=== PATIENT | male | born 1985 | race Two or more races ===

== ENCOUNTER 2025-01-06 21:03 | Emergency (ER) | payer MEDICAID, SELFPAY ==
[2025-01-06 21:04] VITALS: BMI 22.7
[2025-01-06 21:21] VITALS: BP 103/63; PULSE 103; RESP 20; TEMP 36.5; O2SAT 97
--- NOTE | 2025-01-06 21:23 | EKG_ITS ---
[facility] Test Date: 2025-01-06 Pat Name: MOHSEN CHAVEZ Department: Room: - Gender: Male [employer]: : 1985 Requested By: Adriano Escalante Order Number: [id number] Reading MD: Adriano Escalante Measurements Intervals [place] Rate: 99 P: 56 MT: 144 QRS: 62 QRSD: 103 T: 42 QT: 366 QTc: 470 Interpretive Statements SINUS RHYTHM Compared to ECG 03/21/2023 11:09:58 Sinus bradycardia no longer present Left ventricular hypertrophy no longer present /store/S0/[id number].pdf
--- NOTE | 2025-01-06 21:23 | XR_ITS ---
Examination: Abdomen sonogram, Limited Date and time of exam: January 06, 2025 2131 hrs. Indications: Epigastric pain and tenderness beginning one week ago Technique: Real-time loyd scale transabdominal sonographic images of the upper abdomen obtained. Findings: Contracted gallbladder No gallstones Gallbladder wall 0.4 cm Common bile duct 0.4 cm Pancreas obscured by bowel gas Liver 15.2 cm fatty infiltration Normal hepatopedal portal venous flow Patent IVC Impression: Repeat the gallbladder portion of the study with fasting
--- NOTE | 2025-01-06 21:24 | PD.EDRME ---
Rapid Medical Screening Exam RME Arrival date/time: 01/06/25 21:03 39 yo m present to ED for c/o of abd pain for 2 days, hx of pancreatitis I have greeted and performed a focused initial assessment of this patient. A comprehensive ED assessment and evaluation of the patient, analysis of all test results, and completion of the medical decision making process will be conducted by additional ED providers. Chief Complaint: Abdominal Pain Time Seen by Provider: 01/06/25 21:15 Vital signs: Vital Signs Temperature 97.7 F 01/06/25 21:21 Pulse Rate 103 H 01/06/25 21:21 Respiratory Rate 20 01/06/25 21:21 Blood Pressure 103/63 01/06/25 21:21 Pulse Oximetry (%) 97 01/06/25 21:21 Oxygen Delivery Method Room Air 01/06/25 21:21
[2025-01-06 22:00] LABS: Basophils % (Auto) 0 % (0-2.5); Eosinophils % (Auto) 1 % (0-10); Hematocrit 20.4 % (41.0-53.0); Immature Granulocytes % (Auto) 0 % (0-0); Immature Granulocytes Auto 0.01 Thou/mm3 (0.00-0.00); Lymphocytes # (Auto) 0.4 Thou/mm3 (1.0-4.8); Lymphocytes % (Auto) 13 % (10-50); Mean Corpuscular HGB Conc 29.9 g/dl (31.0-37.0); Mean Corpuscular Hemoglobin 26.8 pg (25.0-35.0); Mean Corpuscular Volume 90 fL (80-100); Monocytes # (Auto) 0.5 Thou/mm3 (0.0-0.8); Monocytes % (Auto) 17 % (0-12); Neutrophils # (Auto) 1.9 Thou/mm3 (1.8-7.7); Neutrophils % (Auto) 68 % (37-80); Nucleated Red Blood Cell % 0 /100 WBC (0); Platelet Count 97 Thou/mm3 (140-440); RDW Standard Deviation 64.2 fL (35.1-43.9); Red Blood Count 2.28 Miln/mm3 (4.50-5.90)
[2025-01-06 22:25] LABS: Hemoglobin 6.1 g/dL (13.5-16.0); White Blood Count 2.8 Thou/mm3 (3.8-10.6)
[2025-01-06 22:41] LABS: Alanine Aminotransferase 11 U/L (10-49); Albumin, Serum 2.8 gm/dL (3.5-5.0); Albumin/Globulin Ratio 0.6 (1.2-2.2); Alcohol, Blood Medical < 3.0 mg/dL (0-10.0); Alkaline Phosphatase 195 U/L (46-116); Amylase 144 U/L (30-118); Anion Gap 8 (7-16); Aspartate Amino Transferase 41 U/L (0-34); BUN/Creatinine Ratio 13 Ratio (12-20); Bilirubin,Total 1.9 mg/dL (0.3-1.2); Blood Urea Nitrogen 9 mg/dL (9-23); Calcium 7.9 mg/dL (8.3-10.6); Calcium (Corrected) 8.9 mg/dL (8.5-10.1); Chloride 93 mMol/L (98-107); Creatinine (Component) 0.7 mg/dL (0.6-1.3); Estimated Creatinine Clearance 129.2 mL/min (>60); Glucose 179 mg/dL (74-106); Lipase 86 U/L (12-53); Magnesium 1.6 mg/dL (1.6-2.6); Osmolality,Calculated 252 (275-295); Sodium 124 mMol/L (136-145); Total Protein 7.8 gm/dL (5.7-8.2); Troponin I < 0.020 ng/mL (0.0-0.045); eGFR > 60 See Note
[2025-01-06 22:44] LABS: INR 1.5 (0.9-1.3); Partial Thromboplastin Time 36.5 Seconds (22.0-36.0); Prothrombin Time 16.1 Seconds (9.0-12.2)
[2025-01-06 22:48] LABS: Amphetamine/Methamp Scrn,U Negative (Negative); Barbiturate Screen,Urine Negative (Negative); Benzodiazepines Screen,Urine Negative (Negative); Benzoylecgonine Screen, Ur Negative (Negative); Fentanyl Screen,Urine Negative (Negative); Opiate Screen,Urine Negative (Negative); THC Screen,Urine Negative (Negative)
[2025-01-06 22:53] LABS: B-Type Natriuretic Peptide 74 pg/mL (0-100)
[2025-01-06] MEDS: SODIUM CHLORIDE 0.9% 1000 ML 1,000 ML 999 ML IV (23:25)
[2025-01-06 23:32] VITALS: BP 112/69; PULSE 83; RESP 14; O2SAT 100
--- NOTE | 2025-01-06 23:53 | PD.EDABDPN ---
ED Abdominal Pain RME/HPI General Chief Complaint: Abdominal Pain Stated complaint: ABD PAIN, N/V X 1WK Time seen by provider: 01/06/25 21:15 Arrival date/time: 01/06/25 21:03 RME / HPI RME / HPI narrative: 01/06/25 21:03 39 yo m present to ED for c/o of abd pain for 2 days, hx of pancreatitis I have greeted and performed a focused initial assessment of this patient. A comprehensive ED assessment and evaluation of the patient, analysis of all test results, and completion of the medical decision making process will be conducted by additional ED providers. Dr. Monroy's Main ED Evaluation: 39yo male presents to the ED for a chief complaint of epigastric pain x 2 days. No radiation or migration. Patient states he usually drinks a 12-pack of tall cans of beer a day for a long time . Patient reports associated N/V. He denies any hematemesis, rectal bleeding, shortness of breath, chest pain or any other associated symptoms. Patient states he was admitted to a hospital in [place] 2 weeks ago for the same symptoms, but does not remember what his diagnosis was. Related Data Home Medications ?Medication ?Instructions ?Recorded ?Confirmed ferrous sulfate 325 mg (65 mg 325 mg PO EVERYOTHERDAY 01/06/25 01/06/25 iron) tablet naltrexone 50 mg tablet 50 mg PO BID 01/06/25 01/06/25 pantoprazole 20 mg tablet,delayed 20 mg PO QDAY 01/06/25 01/06/25 release vits,calcium no.78-iron 1 tab PO Q24H 01/06/25 01/06/25 fumarate-folic acid 29 mg-1 mg tablet (Prenatabs FA) terbinafine HCl 250 mg tablet 250 mg PO QDAY 01/06/25 01/06/25 Previous Rx's ?Medication ?Instructions ?Recorded folic acid 1 mg tablet 1 mg PO BID 30 days #30 tabs 01/18/22 levetiracetam 250 mg tablet 500 mg (2 x 250 mg) PO BID 30 days 01/18/22 #120 tabs Allergies Allergy/AdvReac Type Severity Reaction Status Date / Time No Known Allergies Allergy Verified 03/21/23 08:47 Review of Systems Review of Systems Systems Reviewed: All systems reviewed, normal except as documented Past Medical History Past Medical History NEUROLOGIC: Positive Neurological Disorders and Seizures; Negative Cerebrovascular Accident, Transient Ischemic Attacks (TIA), Dementia, Alzheimer's Disease, Parkinson's Disease, Brain Tumor, Meningitis, Epilepsy, Multiple Sclerosis, Cerebral Palsy, Amyotrophic Lateral Sclerosis (ALS/Anya Gehrig's), Guillain-Hope Syndrome, Spina Bifida, Paralysis, Peripheral Neuropathy, Alvares's Palsy, Subdural Hematoma, Migraine, Head Trauma, Spinal Cord Injury or Traumatic Brain Injury CARDIAC: Negative Cardiac Disorders or Congestive Heart Failure RESPIRATORY: Negative Chronic Obstructive Pulmonary Disease (COPD) or Asthma GASTROINTESTINAL: Positive Gastrointestinal Disorders, Pancreatitis and Gastrointestinal Bleed; Negative Hepatitis, Cirrhosis, Celiac Disease, Gall Bladder Disease, Esophageal Varices, Larsen's Esophagus, Colitis, Ulcerative Colitis, Diverticulitis, Diverticulosis, Ulcer, Irritable Bowel, Crohn's Disease, Obstructive Bowel, Hiatal Hernia, Hemorrhoids, Gastroesophageal Reflux Disease or Obesity GENITOURINARY: Negative Genitourinary Disorders or Renal Disease MUSCULOSKELETAL: Positive Musculoskeletal Disorders and Fractures (broke thumb and 5th digit); Negative Muscular Dystrophy, Myasthenia Gravis, Marfan's Syndrome, Arthritis, Rheumatoid Arthritis, Osteoporosis, Degenerative Disk Disease, Gout, Scoliosis, Carpal Tunnel Syndrome, Fibromyalgia, Degenerative Joint Disease, Osteomyelitis or Poliovirus ENT: Negative Cataracts or Head Trauma ENDOCRINE: Negative Endocrine Disorders, Diabetes Mellitus Type 1 or Diabetes Mellitus Type 2 HEMATOLOGIC: Negative Blood Disorders or Sickle Cell Disease PSYCHO/SOCIAL: Positive Psychiatric Problems and Anxiety; Negative Schizophrenia, Recreational Drug Use, Bipolar Disorder, Depression, Behavior Problems, Self-Mutilation, Attention Deficit Disorder, Attention Deficit Hyperactivity Disorder, Depression, Post Traumatic Stress Disorder or Eating Disorder OTHER HISTORY: Positive Blood Transfusions and Chicken Pox; Negative Hospitalization, Autoimmune Disease, Down Syndrome, Autism, Developmental Delay, Shingles, Falls, Blood Transfusion Reaction, Anesthesia Reactions, Organ Transplant, Chemotherapy, Radiation Therapy, Hyperbaric Therapy, MRSA, VRSA, Vancomycin-Resistant Enterococci, Human Immunodeficiency Virus (HIV), Measles, Mumps, Rubella (Malaysian Measles), Pertussis, Clostridium Difficile or Cancer Family History FAMILY HISTORY: Positive Family Cardiac Disorders (HTN), Family Cancer (lung cancer (father)) and Family Surgery (kidney transplant (brother), knee sx (mother)); Negative Family Neurologic Problems, Family Psychiatric Problems, Family Respiratory Disorders, Family Gastrointestinal Problems or Family Anesthesia Reaction Surgical History SURGICAL: Negative Cardiac Surgery, Endocrine Surgery, Ear Surgery, Tympanostomy Tube, Eye Surgery, Nose Surgery, Oral Surgery, Tonsillectomy, Adenoidectomy, Cochlear Implant, Corneal Transplant, Throat Surgery, Abdominal Surgery, Tracheostomy, Gastric Bypass Surgery, Gastrostomy, Bowel Surgery, Nephrectomy, Transurethral Resection, Joint Replacement, Amputation, Open Reduction Internal Fixation, Arthroscopy, Neurologic Surgery, Brain Shunt, Vasectomy or Organ Transplant Social History SMOKING STATUS: Never smoker SUBSTANCE USE: does not use Course Quality Measures none Orders Category Date Time Status EKG (ED ONLY) *Do not use* NOW Care 01/06/25 21:24 Completed IV [Insert IV] STAT Care 01/06/25 21:24 Active EKG (ED Only) Stat Exams 01/06/25 21:23 Draft US abdomen limited Stat Exams 01/06/25 21:23 Completed Alcohol, Blood Medical Stat Lab 01/06/25 21:30 Completed Amylase Stat Lab 01/06/25 21:30 Completed BNP [B-Type Natriuretic Peptide] Stat Lab 01/06/25 21:30 Completed CBC Stat Lab 01/06/25 21:30 Completed CMP [Comprehensive Metabolic Panel] Stat Lab 01/06/25 21:30 Completed Drug Screen,Urine Stat Lab 01/06/25 22:19 Completed INR [Prothrombin Time with INR] Stat Lab 01/06/25 21:30 Completed Lipase Stat Lab 01/06/25 21:30 Completed Mag [Magnesium] Stat Lab 01/06/25 21:30 Completed PTT [Partial Thromboplastin Time] Stat Lab 01/06/25 21:30 Completed Path Review Blood Smear Stat Lab 01/06/25 21:30 Completed Red Blood Cells Stat Lab 01/07/25 00:17 Results Troponin I Stat Lab 01/06/25 21:30 Completed Type and Screen Stat Lab 01/06/25 23:05 Results Type and Screen Stat Lab 01/07/25 01:06 Completed Sodium Chloride 0.9% 1000 ml [Ns] 1,000 ml Med 01/06/25 21:25 Discontinued IV 999 mls/hr Vital Signs Vital signs: Vital Signs Temperature 97.7 F 01/06/25 21:21 Pulse Rate 103 H 01/06/25 21:21 Respiratory Rate 20 01/06/25 21:21 Blood Pressure 103/63 01/06/25 21:21 Pulse Oximetry (%) 97 01/06/25 21:21 Oxygen Delivery Method Room Air 01/06/25 21:21 Abdominal Pain MDM MDM Narrative MDM Narrative:: Scribe Attestation: 01/06/25 - Perlita Dominguez am scribing for and in the presence of Dr. Monroy. 0 500 record to arrive from [facility]. The patient has a history of alcohol abuse and pancreatitis, hospitalized May 2024 for possible pancreatic mass, CEA was 102. Patient had a workup with ERCP and EUS that had negative for malignancy. He was transfused at that time for 1 unit and left the hospital with a hemoglobin of 8.4. Today the patient is coming back with some abdominal pain and daily drinking. He states that he is not having vomiting blood or blood in his stool. He is feeling abdominal pain with drinking more this week. No fevers. Otherwise patient does not appear jaundice. Patient is on iron per his past medical history. Review of his pulse initially showed 103 but on repeat is 80. Patient is not clinically orthostatic. Suspect that his hemoglobin and low hematocrit at 6.1 and 20 is from his chronic continued alcohol use and abuse. Platelets were 97. INR is stable at 1.5 and potassium is low at 3.0. Will replace with IV potassium. Patient is a poor historian. At this time I will order CAT scan to ensure that there is not some ongoing pancreatitis. Patient is being transfused 2 units packed red blood cell. Plan to sign out to 6 AM doc pending final disposition. Patient data External records reviewed:: [facility] previous records (Per chart review, patient was seen here on 07/13/23 for alcohol dependence.) and Other (specify) (Reviewed [facility] records from 05/2024, which showed the patient had a hemoglobin of 8.4.) Clinical information provided by:: patient Social determinants that could affect healthcare access:: alcohol use Patient has the following chronic illnesses:: pancreatitis How is presenting disease/condition affected by chronic disease/condition?: uneffected by Evaluation data The following diagnostics were reviewed and interpreted by me:: lab results and radiology exam(s) Lab and/or radiology exams considered but not ordered:: none Interpretation Summary: WBC count is 2.8, HnH is low at 6.1/20.4, Platelets are low at 97, Sodium is low at 124, Potassium is low at 3.0, Creatinine is normal, Glucose is 179, Total Bilirubin is 1.9, Troponin is normal, BNP is normal, Amylase is 144, Lipase is 86, UDS is negative, Blood Alcohol is negative, according to my interpretation. EKG done at 2133, NSR, rate of 99, normal axis, normal intervals, no acute ST or T wave changes, according to my interpretation. [facility] Report Signed Patient: MOHSEN CHAVEZ. Record#: [id number] Birthdate: 1985 Age/Sex: 39 / M Location: [facility] ([place] Attending Dr: Ordering Physician: Adriano Griffin PA-C Date of Service: 01/06/25 Procedure(s): US abdomen limited Accession Number(s): [id number] cc: Ha Dupont MD; NO PRIMARY/FAMILY,PHYSICIAN; Adriano Griffin PA-C~ Examination: Abdomen sonogram, Limited Date and time of exam: January 06, 2025 2131 hrs. Indications: Epigastric pain and tenderness beginning one week ago Technique: Real-time loyd scale transabdominal sonographic images of the upper abdomen obtained. Findings: Contracted gallbladder No gallstones Gallbladder wall 0.4 cm Common bile duct 0.4 cm Pancreas obscured by bowel gas Liver 15.2 cm fatty infiltration Normal hepatopedal portal venous flow Patent IVC Impression: Repeat the gallbladder portion of the study with fasting Dictated By: Ha Dupont MD Signed By: <Electronically signed by Ha Dupont MD in OV> 01/06/25 1258 Medications / Prescriptions Medications or Prescriptions considered but not ordered:: non Medication administrations:: Medication Administration History Discontinued Medications Sodium Chloride (Ns) 1,000 mls @ 999 mls/hr IV .Q1H1M ONE Stop: 01/06/25 22:25 Last Infusion: 01/07/25 01:37 Dose: Infused Documented By: Admin: 01/06/25 23:25 Dose: 999 mls/hr Documented By: SF see above Consultations Consultation(s) initiated? (list below): No Diagnosis Differential diagnosis abdominal pain: abdominal pain, acute appendicitis, diverticulitis and pancreatitis Most likely diagnosis given after review of the tests above:: final dx pending at sign out Admission Indicated Admission indicated?: not indicated Admission Request Was there a request for admission?: No Disposition Plan Disposition Plan: other (specify) (Signed out to Dr. Souza at [address] abdomen pelvis.) Discharge Plan Prescriptions/Referrals Prescriptions/Med Rec: No Action levetiracetam 250 mg Tablet 500 mg PO BID 30 Days Qty: 120 1RF folic acid 1 mg Tablet 1 mg PO BID 30 Days Qty: 30 0RF naltrexone 50 mg tablet 50 mg PO BID Patient Comments: TAKE 1 TABLET BY MOUTH EVERY DAY FOR 12 WEEKS terbinafine HCl 250 mg tablet 250 mg PO QDAY Patient Comments: TAKE 1 TABLET BY MOUTH EVERY DAY FOR 90 DAYS pantoprazole 20 mg tablet,delayed release (DR/EC) 20 mg PO QDAY Patient Comments: TAKE 1 TABLET BY MOUTH EVERY DAY Prenatabs FA 29-1 mg tablet 1 tab PO Q24H Patient Comments: TAKE 1 TABLET BY MOUTH EVERY DAY FOR 90 DAYS ferrous sulfate 325 mg (65 mg iron) tablet 325 mg PO EVERYOTHERDAY Patient Comments: 1 TABLET ORALLY THREE TIMES A WEEK 30 DAYS Referrals: No Primary/Family,Physician [Primary Care Provider] - In 1 week Problem List Clinical Impression: Chronic anemia, Abdominal pain, History of alcohol abuse Patient/Caregiver Discharge Instructions Print Language: Bermudian
[2025-01-07] VITALS (36 sets, daily range): BP systolic 100–130; BP diastolic 54–85; PULSE 74–92; RESP 14–28; TEMP 36.4–37; O2SAT 98–100
--- NOTE | 2025-01-07 | XR_ITS ---
MRI abdomen, without contrast. MRCP Date and time of exam: January 07, 2025 1404 hours INDICATIONS: Abdominal pain nausea vomiting this week, gallbladder wall thickened, pancreatic edema, 1 mm stone in the common bile duct on CT abdomen study today Technique: Multiple axial and coronal images of the abdomen have been obtained with the Siemens 1.5T MRI scanner. Images obtained included T1 weighted transverse images, T2-weighted transverse images, T2-weighted transverse images fat-suppressed, T2 weighted haste fat suppressed transverse images, T1 weighted images, in and out of phase images, T2-weighted coronal images, breath hold, T2 weighted haze coronal images as well as T2 weighted coronal thick slab images, MRCP. Findings: Gallbladder wall appears mildly thickened Possible tiny gallstones versus sludge Posterior 19 mm liver cyst versus hemangioma Liver is irregular in contour Mild ascites Prominent splenomegaly Sludge versus small stones in the distal common bile duct confirmed on axial image 23 Peripancreatic edema No hydronephrosis Aorta normal size IMPRESSION: Cirrhosis Splenomegaly Mild ascites Gallbladder wall appears mildly thickened which may relate to the patient's ascites Suspicious for small stones versus gallbladder sludge Sludge versus small stones in the distal common bile duct, recommend ERCP follow-up Edema surrounding the pancreas, however the patient has mild ascites
[2025-01-07 03:47] LABS: Path Review Blood Smear Sent to Pathologist
--- NOTE | 2025-01-07 05:33 | XR_ITS ---
Examination: CT abdomen with intravenous contrast CT pelvis with intravenous contrast 2-D coronal reconstructions 2-D sagittal reconstructions Date and time of exam:January 07, 2025 1026 hours COMPARISON: December 28, 2021 INDICATIONS: Generalized abdominal pain with nausea vomiting today, history pancreatitis. CTDI: vol (mGy) 5.84 DLP: (mGycm) 320 Technique: Multiple axial sections of the abdomen and pelvis have been obtained. 64 slice high-resolution scanner used. 3 mm axial sections have been obtained, post intravenous injection 60 cc [id number] 2-D sagittal, coronal reconstructions obtained. Low dose protocols were performed. One or more of the following dose reduction techniques were used; automated exposure control, adjustment of the mA and/or KV according to patient size, use of iterative reconstruction technique. Findings: Mild enlargement cardiac contour No focal liver or splenic lesions Splenomegaly AP dimension 15 cm Minimal fluid subcapsular to the spleen Liver is irregular in contour Gallbladder wall appears mildly thickened Prominent edema surrounding the pancreas with dilated pancreatic duct up to 6 mm Suspicious for 1 mm common bile duct stone Mild ascites No hydronephrosis Appendix does not show significant enlargement No bowel obstruction Colonic diverticulosis Urinary bladder wall thickening up to 10 mm IMPRESSION: Cirrhosis Moderate splenomegaly Mild ascites Gallbladder wall is thickened Acute pancreatitis with dilated pancreatic duct Suspicious for 1 mm common bile duct stone, consider MRCP follow-up Cystitis pattern
--- NOTE | 2025-01-07 06:26 | EDNOTE_ITS ---
Emergency Room Addendum <Pam Hughes - Last Filed: 01/07/25 18:00> Addendum Narrative: 0600: Care assumed from Dr. Riley, the previous shift emergency physician. Past medical, surgical, social and family history reviewed. Vitals and home medications reviewed. I will assume the care of the patient at this time, pending CT abdomen pelvis and final disposition. Please refer to the emergency department record for history and examination from initial visit.? Patient was reevaluated by myself this morning at 0840 hrs. and while he was reported to be comfortable he is completing his second unit of packed red blood cells. But reexamination shows his belly to be exquisitely tender especially upper portions. He does guard. He is complaining of pain . Will give him some pain medicines. Working to hydrate him. Urinalysis was never ordered so that was added on. Because he has such significant pain I will get a lactic acid make sure there is nothing more serious going on. CT of the abdomen is pending also patient has tenderness on his lower chest margin anteriorly but he denies any trauma or injury. Review of the chart reveals patient on naltrexone uncertain what that means. Physical exam by me shows patient is alert awake complaining of pain in his head neck appear normal he is nonicteric. Moves his neck without any discomfort. Lungs are clear to auscultation abdomen is tender but soft and positive bowel sounds are present. Lower extremities are warm and dry He needs to complete his workup for his abdominal pain complete his blood transfusion and will reevaluate the patient after all that. I have reevaluated this patient at 1142 hrs. note>>>>>>> CBC ordered was drawn before the second unit of transfusion was completed so another CBC is pending. Patient CT came back positive for no mass in the liver but concerning for a stone in the common bile duct suggesting possible choledocholithiasis. MRCP is now ordered. No patient's potassium is low we will give him some IV potassium since he has been vomiting. And the lipase is going up suggesting possible pancreatitis whether this is alcohol induced or from possible choledocholithiasis unclear at this time. He still having pain and we will give him another dose of morphine. Patient will probably need to be admitted for intractable pain possible pancreatitis and possible choledocholithiasis. If he does have choledocholithiasis seen on MRCP he will need to be transferred to someplace that has ERCP services. At 14 to 30 hours MRCP is still not done. Follow-up hemoglobin is 8.0. Potassium chloride is infusing at 10 mEq an hour will reevaluate after MRCP report comes back. MRCP came back positive for sludge and stones in the common bile duct consistent with choledocholithiasis. Since we do not have ERCP services here I contacted our transfer nurse at 1515 hrs. so he can transfer the patient to receive ERCP services. Patient is a critical care patient 45 minutes so far also as a signout. RADIOLOGY Procedure(s): CT abdomen pelvis w con Accession Number(s): [id number] cc: Ha Dupont MD; NO PRIMARY/FAMILY,PHYSICIAN; Blanca Riley MD~ Examination: CT abdomen with intravenous contrast CT pelvis with intravenous contrast 2-D coronal reconstructions 2-D sagittal reconstructions Date and time of exam:January 07, 2025 1026 hours COMPARISON: December 28, 2021 INDICATIONS: Generalized abdominal pain with nausea vomiting today, history pancreatitis. CTDI: vol (mGy) 5.84 DLP: (mGycm) 320 Technique: Multiple axial sections of the abdomen and pelvis have been obtained. 64 slice high-resolution scanner used. 3 mm axial sections have been obtained, post intravenous injection 60 cc [id number] 2-D sagittal, coronal reconstructions obtained. Low dose protocols were performed. One or more of the following dose reduction techniques were used; automated exposure control, adjustment of the mA and/or KV according to patient size, use of iterative reconstruction technique. Findings: Mild enlargement cardiac contour No focal liver or splenic lesions Splenomegaly AP dimension 15 cm Minimal fluid subcapsular to the spleen Liver is irregular in contour Gallbladder wall appears mildly thickened Prominent edema surrounding the pancreas with dilated pancreatic duct up to 6 mm Suspicious for 1 mm common bile duct stone Mild ascites No hydronephrosis Appendix does not show significant enlargement No bowel obstruction Colonic diverticulosis Urinary bladder wall thickening up to 10 mm IMPRESSION: Cirrhosis Moderate splenomegaly Mild ascites Gallbladder wall is thickened Acute pancreatitis with dilated pancreatic duct Suspicious for 1 mm common bile duct stone, consider MRCP follow-up Cystitis pattern Dictated By: Ha Dupont MD From records this a CT abdomen/ pelvis from December 28, 2021. Procedure(s): CT abdomen pelvis w con Accession Number(s): [id number] cc: Michele Blevins DEGREASING WHEEL OPERATOR; Ha Dupont MD; NO PRIMARY/FAMILY,PHYSICIAN~ Examination: CT abdomen with intravenous contrast CT pelvis with intravenous contrast 2-D coronal reconstructions 2-D sagittal reconstructions Date and time of exam:December 28, 2021 at 2306 hrs. Comparison November 12, 2021 Indications: Alcohol withdrawal today, sepsis abdominal pain. CTDI: vol (mGy) 14.57 DLP: (mGycm) 678 Technique: Multiple axial sections of the abdomen and pelvis have been obtained. 64 slice high-resolution scanner used. 3 mm axial sections have been obtained, post intravenous injection 60 cc Isovue-370 2-D sagittal, coronal reconstructions obtained. Low dose protocols were performed. One or more of the following dose reduction techniques were used; automated exposure control, adjustment of the mA and/or KV according to patient size, use of iterative reconstruction technique. Findings: Significant bibasilar opacity, greatest left base Severe diffuse fatty infiltration throughout the liver Again noted hyperdense lesion posterior right lobe of the liver, 27 mm Splenomegaly 13 cm sagittal dimension, 15 cm anterior posterior dimension Gallbladder is contracted with findings consistent with gallbladder wall thickening and edema Pancreatic duct in the head region is dilated measuring up to 6 mm No obvious pancreatic mass Perinephric stranding, no renal or ureteral calculi Aorta normal size No bowel obstruction Appendicolith, the appendix is fluid filled and thickened, axial image 101, coronal image 56, measuring up to 7.6 mm in dimension Possible subtle periappendiceal inflammatory change, axial image 103 No bowel obstruction, no diverticulitis Urinary bladder is significantly distended No prostatomegaly The osseous structures are intact Impression: Bibasilar pneumonia, recommend PA lateral chest follow-up Hyperdense lesion posterior right lobe of the liver again noted, 27 mm, recommend repeat hepatobiliary sonography to assess this lesion as well as to exclude thickened gallbladder wall gallbladder wall edema The appendix is fluid-filled and thickened, axial image 101, coronal image 56, measuring up to 7.6 mm in transverse dimension, suspicious for subtle periappendiceal inflammatory change, axial image 103 The appearance should be clinically correlated, consider surgical consultation Dictated By: Ha Dupont MD Procedure(s): MR MRCP Accession Number(s): [id number] cc: Rodney Souza MD; Ha Dupont MD; NO PRIMARY/FAMILY,PHYSICIAN~ MRI abdomen, without contrast. MRCP Date and time of exam: January 07, 2025 1404 hours INDICATIONS: Abdominal pain nausea vomiting this week, gallbladder wall thickened, pancreatic edema, 1 mm stone in the common bile duct on CT abdomen study today Technique: Multiple axial and coronal images of the abdomen have been obtained with the Siemens 1.5T MRI scanner. Images obtained included T1 weighted transverse images, T2-weighted transverse images, T2-weighted transverse images fat-suppressed, T2 weighted haste fat suppressed transverse images, T1 weighted images, in and out of phase images, T2-weighted coronal images, breath hold, T2 weighted haze coronal images as well as T2 weighted coronal thick slab images, MRCP. Findings: Gallbladder wall appears mildly thickened Possible tiny gallstones versus sludge Posterior 19 mm liver cyst versus hemangioma Liver is irregular in contour Mild ascites Prominent splenomegaly Sludge versus small stones in the distal common bile duct confirmed on axial image 23 Peripancreatic edema No hydronephrosis Aorta normal size IMPRESSION: Cirrhosis Splenomegaly Mild ascites Gallbladder wall appears mildly thickened which may relate to the patient's ascites Suspicious for small stones versus gallbladder sludge Sludge versus small stones in the distal common bile duct, recommend ERCP follow-up Edema surrounding the pancreas, however the patient has mild ascites Dictated By: Ha Dupont MD <Rodney Souza MD - Last Filed: 01/07/25 18:03> Addendum Narrative: 0600: Care assumed from Dr. Riley, the previous shift emergency physician. Past medical, surgical, social and family history reviewed. Vitals and home medications reviewed. I will assume the care of the patient at this time, pending CT abdomen pelvis and final disposition. Please refer to the emergency department record for history and examination from initial visit.? Patient was reevaluated by myself this morning at 0840 hrs. and while he was reported to be comfortable he is completing his second unit of packed red blood cells. But reexamination shows his belly to be exquisitely tender especially upper portions. He does guard. He is complaining of pain . Will give him some pain medicines. Working to hydrate him. Urinalysis was never ordered so that was added on. Because he has such significant pain I will get a lactic acid make sure there is nothing more serious going on. CT of the abdomen is pending also patient has tenderness on his lower chest margin anteriorly but he denies any trauma or injury. Review of the chart reveals patient on naltrexone uncertain what that means. Physical exam by me shows patient is alert awake complaining of pain in his head neck appear normal he is nonicteric. Moves his neck without any discomfort. Lungs are clear to auscultation abdomen is tender but soft and positive bowel sounds are present. Lower extremities are warm and dry He needs to complete his workup for his abdominal pain complete his blood transfusion and will reevaluate the patient after all that. I have reevaluated this patient at 1142 hrs. note>>>>>>> CBC ordered was drawn before the second unit of transfusion was completed so another CBC is pending. Patient CT came back positive for no mass in the liver but concerning for a stone in the common bile duct suggesting possible choledocholithiasis. MRCP is now ordered. No patient's potassium is low we will give him some IV potassium since he has been vomiting. And the lipase is going up suggesting possible pancreatitis whether this is alcohol induced or from possible choledocholithiasis unclear at this time. He still having pain and we will give him another dose of morphine. Patient will probably need to be admitted for intractable pain possible pancreatitis and possible choledocholithiasis. If he does have choledocholithiasis seen on MRCP he will need to be transferred to someplace that has ERCP services. At 14 to 30 hours MRCP is still not done. Follow-up hemoglobin is 8.0. Potassium chloride is infusing at 10 mEq an hour will reevaluate after MRCP report comes back. MRCP came back positive for sludge and stones in the common bile duct consistent with choledocholithiasis. Since we do not have ERCP services here I contacted our transfer nurse at 1515 hrs. so he can transfer the patient to receive ERCP services. Patient is a critical care patient 45 minutes so far also as a signout. I did a rectal exam at 1630 hrs. and it is brown stool and strongly guaiac positive. At [address] Hayden's come on shift and assumes care pending transfer for ERCP. Patient is been stable throughout the day. Patient also has pancytopenia potassium is up to 3.2 lactic acid is 0.8 total bilirubin is 2.2 RADIOLOGY Procedure(s): CT abdomen pelvis w con Accession Number(s): [id number] cc: Ha Dupont MD; NO PRIMARY/FAMILY,PHYSICIAN; Blanca iRley MD~ Examination: CT abdomen with intravenous contrast CT pelvis with intravenous contrast 2-D coronal reconstructions 2-D sagittal reconstructions Date and time of exam:January 07, 2025 1026 hours COMPARISON: December 28, 2021 INDICATIONS: Generalized abdominal pain with nausea vomiting today, history pancreatitis. CTDI: vol (mGy) 5.84 DLP: (mGycm) 320 Technique: Multiple axial sections of the abdomen and pelvis have been obtained. 64 slice high-resolution scanner used. 3 mm axial sections have been obtained, post intravenous injection 60 cc [id number] 2-D sagittal, coronal reconstructions obtained. Low dose protocols were performed. One or more of the following dose reduction techniques were used; automated exposure control, adjustment of the mA and/or KV according to patient size, use of iterative reconstruction technique. Findings: Mild enlargement cardiac contour No focal liver or splenic lesions Splenomegaly AP dimension 15 cm Minimal fluid subcapsular to the spleen Liver is irregular in contour Gallbladder wall appears mildly thickened Prominent edema surrounding the pancreas with dilated pancreatic duct up to 6 mm Suspicious for 1 mm common bile duct stone Mild ascites No hydronephrosis Appendix does not show significant enlargement No bowel obstruction Colonic diverticulosis Urinary bladder wall thickening up to 10 mm IMPRESSION: Cirrhosis Moderate splenomegaly Mild ascites Gallbladder wall is thickened Acute pancreatitis with dilated pancreatic duct Suspicious for 1 mm common bile duct stone, consider MRCP follow-up Cystitis pattern Dictated By: Ha Dupont MD From records this a CT abdomen/ pelvis from December 28, 2021. Procedure(s): CT abdomen pelvis w con Accession Number(s): [id number] cc: Michele Blevins NP; Ha Dupont MD; NO PRIMARY/FAMILY,PHYSICIAN~ Examination: CT abdomen with intravenous contrast CT pelvis with intravenous contrast 2-D coronal reconstructions 2-D sagittal reconstructions Date and time of exam:December 28, 2021 at 2306 hrs. Comparison November 12, 2021 Indications: Alcohol withdrawal today, sepsis abdominal pain. CTDI: vol (mGy) 14.57 DLP: (mGycm) 678 Technique: Multiple axial sections of the abdomen and pelvis have been obtained. 64 slice high-resolution scanner used. 3 mm axial sections have been obtained, post intravenous injection 60 cc Isovue-370 2-D sagittal, coronal reconstructions obtained. Low dose protocols were performed. One or more of the following dose reduction techniques were used; automated exposure control, adjustment of the mA and/or KV according to patient size, use of iterative reconstruction technique. Findings: Significant bibasilar opacity, greatest left base Severe diffuse fatty infiltration throughout the liver Again noted hyperdense lesion posterior right lobe of the liver, 27 mm Splenomegaly 13 cm sagittal dimension, 15 cm anterior posterior dimension Gallbladder is contracted with findings consistent with gallbladder wall thickening and edema Pancreatic duct in the head region is dilated measuring up to 6 mm No obvious pancreatic mass Perinephric stranding, no renal or ureteral calculi Aorta normal size No bowel obstruction Appendicolith, the appendix is fluid filled and thickened, axial image 101, coronal image 56, measuring up to 7.6 mm in dimension Possible subtle periappendiceal inflammatory change, axial image 103 No bowel obstruction, no diverticulitis Urinary bladder is significantly distended No prostatomegaly The osseous structures are intact Impression: Bibasilar pneumonia, recommend PA lateral chest follow-up Hyperdense lesion posterior right lobe of the liver again noted, 27 mm, recommend repeat hepatobiliary sonography to assess this lesion as well as to exclude thickened gallbladder wall gallbladder wall edema The appendix is fluid-filled and thickened, axial image 101, coronal image 56, measuring up to 7.6 mm in transverse dimension, suspicious for subtle periappendiceal inflammatory change, axial image 103 The appearance should be clinically correlated, consider surgical consultation Dictated By: Ha Dupont MD Procedure(s): MR MRCP Accession Number(s): [id number] cc: Rodney Souza MD; Ha Dupont MD; NO PRIMARY/FAMILY,PHYSICIAN~ MRI abdomen, without contrast. MRCP Date and time of exam: January 07, 2025 1404 hours INDICATIONS: Abdominal pain nausea vomiting this week, gallbladder wall thickened, pancreatic edema, 1 mm stone in the common bile duct on CT abdomen study today Technique: Multiple axial and coronal images of the abdomen have been obtained with the Siemens 1.5T MRI scanner. Images obtained included T1 weighted transverse images, T2-weighted transverse images, T2-weighted transverse images fat-suppressed, T2 weighted haste fat suppressed transverse images, T1 weighted images, in and out of phase images, T2-weighted coronal images, breath hold, T2 weighted haze coronal images as well as T2 weighted coronal thick slab images, MRCP. Findings: Gallbladder wall appears mildly thickened Possible tiny gallstones versus sludge Posterior 19 mm liver cyst versus hemangioma Liver is irregular in contour Mild ascites Prominent splenomegaly Sludge versus small stones in the distal common bile duct confirmed on axial image 23 Peripancreatic edema No hydronephrosis Aorta normal size
[2025-01-07 09:15] LABS: Lactate (Lactic Acid) 0.8 mMol/L (0.4-2.0)
[2025-01-07 09:18] LABS: Basophils % (Auto) 1 % (0-2.5); Eosinophils % (Auto) 1 % (0-10); Immature Granulocytes % (Auto) 0 % (0-0); Immature Granulocytes Auto 0.01 Thou/mm3 (0.00-0.00); Lymphocytes # (Auto) 0.5 Thou/mm3 (1.0-4.8); Lymphocytes % (Auto) 15 % (10-50); Mean Corpuscular HGB Conc 29.5 g/dl (31.0-37.0); Mean Corpuscular Hemoglobin 26.9 pg (25.0-35.0); Mean Corpuscular Volume 91 fL (80-100); Monocytes # (Auto) 0.7 Thou/mm3 (0.0-0.8); Monocytes % (Auto) 19 % (0-12); Neutrophils # (Auto) 2.3 Thou/mm3 (1.8-7.7); Neutrophils % (Auto) 64 % (37-80); Nucleated Red Blood Cell % 0 /100 WBC (0); Platelet Count 107 Thou/mm3 (140-440); RDW Standard Deviation 66.7 fL (35.1-43.9); Red Blood Count 2.42 Miln/mm3 (4.50-5.90); White Blood Count 3.5 Thou/mm3 (3.8-10.6)
[2025-01-07] MEDS: SODIUM CHLORIDE 0.9% 1000 ML 1,000 ML 999 ML IV (09:18)
[2025-01-07 09:20] LABS: Collection Type, Urine Clean Catch
[2025-01-07] MEDS: ONDANSETRON INJ 2 MG/ML INJ 2 ML 4 MG IV ×2 (09:26→22:09)
[2025-01-07] MEDS: MORPHINE SULF INJ 10 MG/ML VIAL 5 MG IVP ×2 (09:26→11:59)
[2025-01-07 09:29] LABS: Hemoglobin 6.5 g/dL (13.5-16.0)
[2025-01-07] MEDS: SODIUM CHLORIDE 0.9% 1000 ML 1,000 ML 150 ML IV (09:29)
[2025-01-07 09:30] LABS: Bilirubin,Urine Negative (Negative); Blood,Urine 1+ (Negative); Color,Urine Yellow (Lt Yel-Yel); Culture Indicated,Urine Not Indicated; Glucose, Urine Negative (Negative); Ketones,Urine Negative (Negative); Leukocyte Esterase,Urine Negative (Negative); Nitrite,Urine Negative (Negative); Protein,Urine Trace (Neg - Trace); RBC,Urine 3 /hpf (0-3); Specific Gravity,Urine 1.016 (1.001-1.035); Squamous Epithelial Cell,Urine 3 /hpf (0-5); WBC,Urine 3 /hpf (0-5)
[2025-01-07 09:44] LABS: Clarity,Urine Hazy (Clear/Hazy)
[2025-01-07 10:15] LABS: Lipase 266 U/L (12-53)
[2025-01-07] MEDS: POTASSIUM CHL 10 mEq IVPB 10 MEQ/100 ML BAG 100 MEQ IV ×2 (11:59→21:32)
[2025-01-07 12:14] LABS: Basophils % (Auto) 1 % (0-2.5); Eosinophils % (Auto) 1 % (0-10); Hematocrit 25.4 % (41.0-53.0); Immature Granulocytes % (Auto) 1 % (0-0); Immature Granulocytes Auto 0.01 Thou/mm3 (0.00-0.00); Lymphocytes # (Auto) 0.3 Thou/mm3 (1.0-4.8); Lymphocytes % (Auto) 15 % (10-50); Mean Corpuscular HGB Conc 31.5 g/dl (31.0-37.0); Mean Corpuscular Hemoglobin 27.3 pg (25.0-35.0); Mean Corpuscular Volume 87 fL (80-100); Monocytes # (Auto) 0.3 Thou/mm3 (0.0-0.8); Monocytes % (Auto) 15 % (0-12); Neutrophils # (Auto) 1.4 Thou/mm3 (1.8-7.7); Neutrophils % (Auto) 68 % (37-80); Nucleated Red Blood Cell % 0 /100 WBC (0); Platelet Count 98 Thou/mm3 (140-440); RDW Standard Deviation 56.9 fL (35.1-43.9); Red Blood Count 2.93 Miln/mm3 (4.50-5.90)
[2025-01-07] MEDS: PIPER/TAZO 3.375 GM PREMIX 3.375 GM/50 ML BAG IV (16:19)
[2025-01-07] MEDS: POTASSIUM CHL 10 mEq IVPB 10 MEQ/100 ML BAG 50 MEQ IV ×2 (16:19→18:23)
--- NOTE | 2025-01-07 16:33 | PC.CM ---
Addendum entered by Eugenia Vanegas RN 01/07/25 18:28: 1800 I faxed over information to [facility] and I spoke to Roya transfer nurse. I let her know we are needing ERCP and patient is in our ED. Addendum entered by Eugenia Vanegas RN 01/07/25 18:26: 1645 I called and spoke to [facility] transfer nurse Lanette and she states they have had a few stat transfer so they will be reviewing patients information once they have time. Packet started along with CD. Original Note: 1520 Patient needs to be transferred for ERCP. I faxed information to [facility] transfer center and I stated packet.
[2025-01-07 16:54] LABS: OBS Developer Lot # 1-24-551749; OBS Performed By madrg3; OBS QC OK? Yes; Occult Blood, Stool Positive (Negative)
[2025-01-07 16:59] LABS: Alanine Aminotransferase 9 U/L (10-49); Albumin, Serum 2.5 gm/dL (3.5-5.0); Albumin/Globulin Ratio 0.5 (1.2-2.2); Alkaline Phosphatase 171 U/L (46-116); Anion Gap 7 (7-16); Aspartate Amino Transferase 33 U/L (0-34); BUN/Creatinine Ratio 20 Ratio (12-20); Bilirubin,Total 2.2 mg/dL (0.3-1.2); Blood Urea Nitrogen 8 mg/dL (9-23); Calcium 7.4 mg/dL (8.3-10.6); Calcium (Corrected) 8.6 mg/dL (8.5-10.1); Carbon Dioxide 21.3 mMol/L (20.0-31.0); Chloride 101 mMol/L (98-107); Creatinine (Component) 0.4 mg/dL (0.6-1.3); Estimated Creatinine Clearance 226.1 mL/min (>60); Globulin 4.6 gm/dL (2.3-3.5); Glucose 104 mg/dL (74-106); Osmolality,Calculated 257 (275-295); Potassium 3.2 mMol/L (3.4-5.1); Sodium 129 mMol/L (136-145); Total Protein 7.1 gm/dL (5.7-8.2); eGFR > 60 See Note
--- NOTE | 2025-01-07 20:53 | EDNOTE_ITS ---
Emergency Room Addendum <Perlita Gross - Last Filed: 01/07/25 23:36> Addendum Narrative: I took over the care from Dr. Souza at 6 PM on 01/07/2025, see his notes for complete H&P and ED course. I reviewed all diagnostic test results. At 2049, I spoke with Dr. Connors from [facility] regarding transfer. About the presentation and exam and diagnostics and treatments here. And need of further care. They decline the patient for transfer, as they do not feel the patient needs urgent ERCP. At 2331, I spoke with [facility]'s transfer center. About the presentation and exam and diagnostics and treatments here. And need of further care. Awaiting callback at this time. <Néstor Hayden MD - Last Filed: 01/08/25 01:43> Addendum Narrative: I took over the care from Dr. Souza at 6 PM on 01/07/2025, see previous notes for complete H&P and ED course. Diagnoses include: Choledocholithiasis GI bleed with severe anemia needing transfusion Cholelithiasis Pancreatitis History of alcohol abuse No GI service here currently. I discussed the case with [facility] (Dr. Collado).? About the presentation and exam and diagnostics and treatments here.? And need of further care.? Will accept the patient. Patient transferred out at 1:45 AM on 01/08/2025. During my watch, the patient remained stable. Néstor Hayden MD
[2025-01-07] MEDS: levETIRAcetam 250 MG TABLET 500 MG PO (21:33)
[2025-01-07] MEDS: HYDROmorphone INJ 2 MG/ML VIAL IVP (22:09)
[2025-01-07 22:42] LABS: Hematocrit 24.4 % (41.0-53.0)
[2025-01-07 22:53] LABS: Hemoglobin 7.7 g/dL (13.5-16.0)
[2025-01-07 23:06] LABS: Bilirubin,Direct 1.3 mg/dL (0.0-0.3)
[2025-01-08 00:03] VITALS: BP 115/85; PULSE 86; RESP 17; TEMP 36.7; O2SAT 100
--- NOTE | 2025-01-08 00:12 | PC.NURSE ---
THIS PT IS ACCEPTED TO [facility] BY DR. SCHULZ. THIS IS A ER:ER TRANSFER AND NUMBER FOR REPORT IS [phone]. LILI WAS THE FACILITY REP I SPOKE WITH FOR ACCEPTING INFORMATION.
[2025-01-08 01:00] VITALS: BP 110/68; PULSE 89; RESP 13; O2SAT 97
--- NOTE | 2025-01-08 01:49 | PC.NURSE ---
called report to [facility] spoke to Cortney PATTON.
== END 2025-01-08 01:52 | disposition short-term general hospital (02) ==
PROVIDERS: Emergency Medicine; Physician Assistant; Emergency Provider Emergency Medicine
DX: D64.9 Anemia, unspecified (principal); R10.9 Unspecified abdominal pain; K80.50 Calculus of bile duct without cholangitis or cholecystitis without obstruction; R16.1 Splenomegaly, not elsewhere classified
CPT/HCPCS: 36415; 36430; 74177; 76705; 80053; 80307; 80320; 81001; 82150; 82248; 82270; 83605; 83690; 83735; 83880; 84484; 85014; 85018; 85025; 85610; 85730; 86850; 86900; 86901; 86923; 96361; 96365; 96367; 96375; 99291; A4649; J2270; J2405; J2543; J3480; J3490; J7030; P9016; Q9967; S8037; 74181; A9270; G0480

== ENCOUNTER 2025-03-06 22:53 | Inpatient (IN) | payer MEDICAID, SELFPAY ==
[2025-03-06 22:54] VITALS: BMI 21.2
[2025-03-06 23:30] VITALS: BP 134/91; PULSE 120; RESP 20; TEMP 37.1; O2SAT 98
[2025-03-07] VITALS (8 sets, daily range): BP systolic 106–154; BP diastolic 64–87; PULSE 70–97; RESP 14–99; TEMP 36.2–36.9; O2SAT 95–100; BMI 22.2
--- NOTE | 2025-03-07 00:16 | EDRME_ITS ---
Rapid Medical Screening Exam COUNT INCLUDES THE [facility] Arrival date/time: 03/06/25 22:53 39M with history of alcoholic cirrhosis (recent relapse) presents to ED with black stool and ab pain. Patient denies N/V. Chief Complaint: GI Bleed Vital signs: Vital Signs Temperature 98.7 F 03/06/25 23:30 Pulse Rate 120 H 03/06/25 23:30 Respiratory Rate 20 03/06/25 23:30 Blood Pressure 134/91 H 03/06/25 23:30 Pulse Oximetry (%) 98 03/06/25 23:30 Oxygen Delivery Method Room Air 03/06/25 23:30
[2025-03-07 00:49] LABS: Basophils % (Auto) 1 % (0-2.5); Eosinophils % (Auto) 0 % (0-10); Hematocrit 29.6 % (41.0-53.0); Hemoglobin 10.4 g/dL (13.5-16.0); Immature Granulocytes % (Auto) 0 % (0-0); Immature Granulocytes Auto 0.01 Thou/mm3 (0.00-0.00); Lymphocytes # (Auto) 2.5 Thou/mm3 (1.0-4.8); Lymphocytes % (Auto) 48 % (10-50); Mean Corpuscular HGB Conc 35.1 g/dl (31.0-37.0); Mean Corpuscular Hemoglobin 30.6 pg (25.0-35.0); Mean Corpuscular Volume 87 fL (80-100); Monocytes # (Auto) 0.2 Thou/mm3 (0.0-0.8); Monocytes % (Auto) 4 % (0-12); Neutrophils # (Auto) 2.5 Thou/mm3 (1.8-7.7); Neutrophils % (Auto) 47 % (37-80); Nucleated Red Blood Cell % 0 /100 WBC (0); Platelet Count 105 Thou/mm3 (140-440); RDW Standard Deviation 50.9 fL (35.1-43.9); White Blood Count 5.2 Thou/mm3 (3.8-10.6)
[2025-03-07 01:05] LABS: INR 1.4 (0.9-1.3); Partial Thromboplastin Time 34.9 Seconds (22.0-36.0); Prothrombin Time 14.6 Seconds (9.0-12.2)
[2025-03-07 01:16] LABS: Alanine Aminotransferase 18 U/L (10-49); Albumin, Serum 3.4 gm/dL (3.5-5.0); Albumin/Globulin Ratio 0.6 (1.2-2.2); Alkaline Phosphatase 172 U/L (46-116); Anion Gap 16 (7-16); Aspartate Amino Transferase 67 U/L (0-34); BUN/Creatinine Ratio 7 Ratio (12-20); Bilirubin,Total 1.2 mg/dL (0.3-1.2); Blood Urea Nitrogen < 5 mg/dL (9-23); Calcium 8.4 mg/dL (8.3-10.6); Calcium (Corrected) 8.9 mg/dL (8.5-10.1); Carbon Dioxide 21.5 mMol/L (20.0-31.0); Chloride 106 mMol/L (98-107); Creatinine (Component) 0.7 mg/dL (0.6-1.3); Estimated Creatinine Clearance 121.2 mL/min (>60); Globulin 5.3 gm/dL (2.3-3.5); Glucose 104 mg/dL (74-106); Lipase 26 U/L (12-53); Osmolality,Calculated 282 (275-295); Potassium 3.7 mMol/L (3.4-5.1); Sodium 143 mMol/L (136-145); Total Protein 8.7 gm/dL (5.7-8.2); eGFR > 60 See Note
[2025-03-07 01:18] LABS: Alcohol, Blood Medical 405.5 mg/dL (0-10.0)
--- NOTE | 2025-03-07 02:14 | XR_ITS ---
Examination: CT abdomen with intravenous contrast CT pelvis with intravenous contrast 2-D coronal reconstructions 2-D sagittal reconstructions Date and time of exam:March 07, 2025 0314 hours Comparison January 07, 2025 INDICATIONS: Generalized abdominal pain today. CTDI: vol (mGy) 7.8 DLP: (mGycm) 412 Technique: Multiple axial sections of the abdomen and pelvis have been obtained. 64 slice high-resolution scanner used. 3 mm axial sections have been obtained, post intravenous injection 60 cc of Isovue 370 2-D sagittal, coronal reconstructions obtained. Low dose protocols were performed. One or more of the following dose reduction techniques were used; automated exposure control, adjustment of the mA and/or KV according to patient size, use of iterative reconstruction technique. Findings: Diffuse fatty infiltration throughout the liver Prominent splenomegaly Gallbladder wall appears thickened Mild ascites Mild edema about the head of the pancreas Portosystemic collateral vessels medial to the spleen Aorta normal size No hydronephrosis Normal appendix Scattered colonic diverticulosis Urinary bladder intact Moderate disc narrowing L5-S1 IMPRESSION: Cirrhosis Significant splenomegaly Mild ascites Mild edema about the head of the pancreas, clinical correlation is advised Portal hypertension
--- NOTE | 2025-03-07 02:21 | PD.EDGIBLD ---
ED GI Bleed RME/HPI General Chief complaint: GI Bleed Stated complaint: RECTAL BLEEDING Time Seen by Provider: 03/07/25 00:42 Arrival date/time: 03/06/25 22:53 RME / HPI RME / HPI Narrative: 03/06/25 22:53 39M with history of alcoholic cirrhosis (recent relapse) presents to ED with black stool and ab pain. Patient denies N/V. ------ Dr. Lea?s Main ED Evaluation: 39yo male with a history of cirrhosis, alcohol abuse presents to the ED for complaints of epigastric pain and black stools x today. Patient states he had 6 beers today, reporting he started having epigastric pain and black stools today. Patient states his pain radiates to the right side of his back. Patient denies any nausea, vomiting, fever, chills, UTI symptoms or any other associated symptoms. NKA. Related Data Home Medications ?Medication ?Instructions ?Recorded ?Confirmed ferrous sulfate 325 mg (65 mg 325 mg PO EVERYOTHERDAY 01/06/25 01/06/25 iron) tablet naltrexone 50 mg tablet 50 mg PO BID 01/06/25 01/06/25 pantoprazole 20 mg tablet,delayed 20 mg PO QDAY 01/06/25 01/06/25 release vits,calcium no.78-iron 1 tab PO Q24H 01/06/25 01/06/25 fumarate-folic acid 29 mg-1 mg tablet (Prenatabs FA) terbinafine HCl 250 mg tablet 250 mg PO QDAY 01/06/25 01/06/25 Previous Rx's ?Medication ?Instructions ?Recorded folic acid 1 mg tablet 1 mg PO BID 30 days #30 tabs 01/18/22 levetiracetam 250 mg tablet 500 mg (2 x 250 mg) PO BID 30 days 01/18/22 #120 tabs Allergies Allergy/AdvReac Type Severity Reaction Status Date / Time No Known Allergies Allergy Verified 03/06/25 22:54 Review of Systems Review of Systems Systems Reviewed: All systems reviewed, normal except as documented Past Medical History Past Medical History NEUROLOGIC: Positive Neurological Disorders and Seizures; Negative Cerebrovascular Accident, Transient Ischemic Attacks (TIA), Dementia, Alzheimer's Disease, Parkinson's Disease, Brain Tumor, Meningitis, Epilepsy, Multiple Sclerosis, Cerebral Palsy, Amyotrophic Lateral Sclerosis (ALS/Anya Gehrig's), Guillain-Alamo Syndrome, Spina Bifida, Paralysis, Peripheral Neuropathy, Alvares's Palsy, Subdural Hematoma, Migraine, Head Trauma, Spinal Cord Injury or Traumatic Brain Injury CARDIAC: Negative Cardiac Disorders or Congestive Heart Failure RESPIRATORY: Negative Chronic Obstructive Pulmonary Disease (COPD) or Asthma GASTROINTESTINAL: Positive Gastrointestinal Disorders, Pancreatitis and Gastrointestinal Bleed; Negative Hepatitis, Cirrhosis, Celiac Disease, Gall Bladder Disease, Esophageal Varices, Larsen's Esophagus, Colitis, Ulcerative Colitis, Diverticulitis, Diverticulosis, Ulcer, Irritable Bowel, Crohn's Disease, Obstructive Bowel, Hiatal Hernia, Hemorrhoids, Gastroesophageal Reflux Disease or Obesity GENITOURINARY: Negative Genitourinary Disorders or Renal Disease MUSCULOSKELETAL: Positive Musculoskeletal Disorders and Fractures; Negative Muscular Dystrophy, Myasthenia Gravis, Marfan's Syndrome, Arthritis, Rheumatoid Arthritis, Osteoporosis, Degenerative Disk Disease, Gout, Scoliosis, Carpal Tunnel Syndrome, Fibromyalgia, Degenerative Joint Disease, Osteomyelitis or Poliovirus ENT: Negative Cataracts or Head Trauma ENDOCRINE: Negative Endocrine Disorders, Diabetes Mellitus Type 1 or Diabetes Mellitus Type 2 HEMATOLOGIC: Negative Blood Disorders or Sickle Cell Disease PSYCHO/SOCIAL: Positive Psychiatric Problems and Anxiety; Negative Schizophrenia, Recreational Drug Use, Bipolar Disorder, Depression, Behavior Problems, Self-Mutilation, Attention Deficit Disorder, Attention Deficit Hyperactivity Disorder, Depression, Post Traumatic Stress Disorder or Eating Disorder OTHER HISTORY: Positive Blood Transfusions and Chicken Pox; Negative Hospitalization, Autoimmune Disease, Down Syndrome, Autism, Developmental Delay, Shingles, Falls, Blood Transfusion Reaction, Anesthesia Reactions, Organ Transplant, Chemotherapy, Radiation Therapy, Hyperbaric Therapy, MRSA, VRSA, Vancomycin-Resistant Enterococci, Human Immunodeficiency Virus (HIV), Measles, Mumps, Rubella (Upper Sor[place] Measles), Pertussis, Clostridium Difficile or Cancer Family History FAMILY HISTORY: Positive Family Cardiac Disorders, Family Cancer and Family Surgery; Negative Family Neurologic Problems, Family Psychiatric Problems, Family Respiratory Disorders, Family Gastrointestinal Problems or Family Anesthesia Reaction Surgical History SURGICAL: Negative Cardiac Surgery, Endocrine Surgery, Ear Surgery, Tympanostomy Tube, Eye Surgery, Nose Surgery, Oral Surgery, Tonsillectomy, Adenoidectomy, Cochlear Implant, Corneal Transplant, Throat Surgery, Abdominal Surgery, Tracheostomy, Gastric Bypass Surgery, Gastrostomy, Bowel Surgery, Nephrectomy, Transurethral Resection, Joint Replacement, Amputation, Open Reduction Internal Fixation, Arthroscopy, Neurologic Surgery, Brain Shunt, Vasectomy or Organ Transplant Social History SMOKING STATUS: Never smoker SUBSTANCE USE: does not use ED Exam Narrative Physical exam: GENERAL APPEARANCE: alert and oriented x 4, well-developed, well-nourished, no acute distress VITALS: All vitals were reviewed and the pulse ox is 99% on room air, which is normal according to my interpretation. HEENT: Normocephalic, atraumatic; pupils equal, round, reactive to light; EOMI; mucous membranes pink, moist; oropharynx clear NECK: Supple LUNGS: CTABL; no wheezes, no rales, no rhonchi HEART: Regular rate, regular rhythm; normal S1, S2; no murmurs ABDOMEN: non distended; normal BS; soft, epigastric tenderness, no guarding, no rebound EXTREMITIES: atraumatic; no edema NEUROLOGIC: awake; alert and oriented x4; cranial nerves II-XII grossly intact; no focal sensory or motor deficits PSYCHIATRIC: appropriate mood and affect SKIN: warm, dry, normal color; no rashes Course Quality Measures none Orders Category Date Time Status CT Screening NOW Care 03/07/25 02:14 Active Insert IV NOW Care 03/07/25 02:[address] abdomen pelvis w con Stat Exams 03/07/25 02:14 Taken Alcohol, Blood Medical Stat Lab 03/07/25 00:26 Completed CBC Stat Lab 03/07/25 00:26 Completed CMP [Comprehensive Metabolic Panel] Stat Lab 03/07/25 00:26 Completed INR [Prothrombin Time with INR] Stat Lab 03/07/25 00:26 Completed Lipase Stat Lab 03/07/25 00:26 Completed PTT [Partial Thromboplastin Time] Stat Lab 03/07/25 00:26 Completed Morphine Inj Med 03/07/25 02:19 Discontinued 5 mg IVP X1 ONE Morphine Inj Med 03/07/25 04:30 Discontinued 5 mg IVP X1 ONE Ondansetron Inj [Zofran Inj] Med 03/07/25 02:19 Discontinued 4 mg IVP X1 ONE Ondansetron Inj [Zofran Inj] Med 03/07/25 04:30 Discontinued 4 mg IVP X1 ONE Pantoprazole Inj [Protonix Inj] Med 03/07/25 04:50 Discontinued 80 mg IVP X1 ONE Sodium Chloride 0.9% 1000 ml [Ns] 1,000 ml Med 03/07/25 02:19 Discontinued IV 999 mls/hr levETIRAcetam INJ [Keppra Inj] Med 03/07/25 02:19 Discontinued 1,000 mg IVP X1 ONE Reevaluation(s) Reevaluation #1: Patient states his pain has improved after receiving his second dose of Morphine. Time: 04:51 Vital Signs Vital signs: Vital Signs Temperature 98.7 F 03/06/25 23:30 Pulse Rate 120 H 03/06/25 23:30 Respiratory Rate 20 03/06/25 23:30 Blood Pressure 134/91 H 03/06/25 23:30 Pulse Oximetry (%) 98 03/06/25 23:30 Oxygen Delivery Method Room Air 03/06/25 23:30 GI Bleed MDM Narrative MDM Narrative:: Scribe Attestation: 03/07/25 Perlita Valadez am scribing for and in the presence of Dr. Lea. Patient data External records reviewed:: [facility] previous records (Per chart review, patient was seen here on 01/06/25 for abdominal pain and was transferred to [facility] for ERCP.) Clinical information provided by:: patient Social determinants that could affect healthcare access:: alcohol use Patient has the following chronic illnesses:: none How is presenting disease/condition affected by chronic disease/condition?: no chronic disease Evaluation data The following diagnostics were reviewed and interpreted by me:: lab results and radiology exam(s) Lab and/or radiology exams considered but not ordered:: none Interpretation Summary: WBC normal, HnH 10.4/29.6, PT elevated at 14.6, INR 1.4, PTT normal, AST 67, Lipase normal, Blood Alcohol 405.5. Telerad Preliminary Report Draft Patient: MOHSEN CHAVEZ [facility]. Record#: [id number] Birthdate: 1985 Age/Sex: 39 / M Location: [facility] Attending Dr: Ordering Physician: Date of Service: Procedure(s): Accession Number(s): cc: ~ CT scan of the abdomen and pelvis with intravenous contrast (axial sections with sagittal and coronal reformats) March 07, 2025 0314 hours Clinical History: Abdominal pain, melena. Comparison: Reference is made to the prior report dated December 28, 2021. Findings: Tiny lung cysts and minimal pleural thickening is seen at the lung bases. Fatty infiltration of the liver is noted. A few small hypodense lesions are noted in the liver, possibly small hemangiomas. There is mild enhancement of wall of gallbladder, likely reactive. The head of the pancreas is mildly edematous with peripancreatic fat stranding. No focal peripancreatic fluid collection. There is mild peripancreatic fat stranding. There is mildly prominent pancreatic duct in tail of pancreas, as previously described. There is mild to moderate splenomegaly as previously described. Portal and splenic veins are dilated measuring 1.7 and 1.6 cm respectively. Nonspecific perinephric fat stranding is noted bilaterally. No evidence of renal/ureteric calculus or hydroureteronephrosis. The adrenals are unremarkable. No evidence of bowel obstruction. There is mild thickening of the esophagus, related to mild esophagitis or submucosal varices. There are multiple colonic diverticula without evidence of diverticulitis. Fluid filled small bowel loops are seen, nonspecific or related to ileus. The appendix is within normal limits with appendicoliths in its lumen (axial images [id number]). No contrast extravasation in the stomach, small or large bowel loops to suggest active gastrointestinal hemorrhage at the time of examination. There is no mesenteric or retroperitoneal adenopathy. The urinary bladder is unremarkable. There is no free fluid or free air. Degenerative changes are identified in the spine. The external and internal iliac vessels demonstrate marginal calcification without evidence of aneurysm. Impression: 1. The head of the pancreas is mildly edematous with peripancreatic fat stranding. Acute pancreatitis cannot be excluded. No focal peripancreatic fluid collection. Recommend clinical correlation and follow-up. 2. Splenomegaly with dilated portal and splenic veins. These are concerning for portal hypertension. Recommend clinical correlation. 3. Other findings as described above. Report Electronically Signed By: Chester Zaldivar 03/07/2025 4:43:42 AM Medications / Prescriptions Medications or Prescriptions considered but not ordered:: none Medication administrations:: Medication Administration History Discontinued Medications Sodium Chloride (Ns) 1,000 mls @ 999 mls/hr IV .Q1H1M ONE Stop: 03/07/25 03:19 Last Infusion: 03/07/25 04:32 Dose: Infused Documented By: Admin: 03/07/25 02:44 Dose: 999 mls/hr Documented By: BD Levetiracetam (Levetiracetam Inj 100 Mg/Ml Vial 5ml) 1,000 mg IVP X1 ONE Stop: 03/07/25 02:20 Last Admin: 03/07/25 02:44 Dose: 1,000 mg Documented By: BD Morphine Sulfate (Morphine Sulf Inj 10 Mg/Ml Vial) 5 mg IVP X1 ONE Stop: 03/07/25 02:20 Last Admin: 03/07/25 02:43 Dose: 5 mg Documented By: BD Morphine Sulfate (Morphine Sulf Inj 10 Mg/Ml Vial) 5 mg IVP X1 ONE Stop: 03/07/25 04:31 Last Admin: 03/07/25 04:38 Dose: 5 mg Documented By: BD Ondansetron HCl (Ondansetron Inj 2 Mg/Ml Inj 2 Ml) 4 mg IVP X1 ONE Stop: 03/07/25 02:20 Last Admin: 03/07/25 02:43 Dose: 4 mg Documented By: BD Ondansetron HCl (Ondansetron Inj 2 Mg/Ml Inj 2 Ml) 4 mg IVP X1 ONE; Protocol Stop: 03/07/25 04:31 Last Admin: 03/07/25 04:39 Dose: 4 mg Documented By: BD Pantoprazole Sodium (Pantoprazole Inj 40 Mg Vial) 80 mg IVP X1 ONE Stop: 03/07/25 04:51 Last Admin: 03/07/25 04:56 Dose: 80 mg Documented By: BD see above Consultations Consultation(s) initiated? (list below): Yes Consultation #1 (Physician, Specialty, Details): Discussed case with the resident physician, attending Dr. Martinez from Hospitalist service regarding admission. Discussed patients ED course, exam findings, labs, and radiology results. The Hospitalist agrees to accept the patient for admission. Time: 04:48 Diagnosis GI bleed differential diagnosis: other (gastritic, pancreatitis, ulcer, upper GI bleed) Most likely diagnosis given after review of the tests above:: Upper GI bleed, Alcoholic gastritis, Acute inflammation of the pancreas Admission Indicated Admission indicated?: indicated Admission Request Was there a request for admission?: Yes Admission Attestation Admission request attestation: Discussed case with [] from Hospitalist service regarding admission. Discussed patients ED course, exam findings, labs, and radiology results. The Hospitalist [agrees,declines] to accept the patient for admission. Disposition Plan Disposition Plan: Admit Discharge Plan Plan Patient Disposition: Admit Acute Care w/in Hospital Prescriptions/Referrals Prescriptions/Med Rec: No Action levetiracetam 250 mg Tablet 500 mg PO BID 30 Days Qty: 120 1RF folic acid 1 mg Tablet 1 mg PO BID 30 Days Qty: 30 0RF naltrexone 50 mg tablet 50 mg PO BID Patient Comments: TAKE 1 TABLET BY MOUTH EVERY DAY FOR 12 WEEKS terbinafine HCl 250 mg tablet 250 mg PO QDAY Patient Comments: TAKE 1 TABLET BY MOUTH EVERY DAY FOR 90 DAYS pantoprazole 20 mg tablet,delayed release (DR/EC) 20 mg PO QDAY Patient Comments: TAKE 1 TABLET BY MOUTH EVERY DAY Prenatabs FA 29-1 mg tablet 1 tab PO Q24H Patient Comments: TAKE 1 TABLET BY MOUTH EVERY DAY FOR 90 DAYS ferrous sulfate 325 mg (65 mg iron) tablet 325 mg PO EVERYOTHERDAY Patient Comments: 1 TABLET ORALLY THREE TIMES A WEEK 30 DAYS Problem List Clinical Impression: Upper GI bleed, Alcoholic gastritis, Acute inflammation of the pancreas Patient/Caregiver Discharge Instructions Print Language: Russian Stand Alone Forms: Kimmy Award Info., Patient Portal Info Letter
[2025-03-07] MEDS: MORPHINE SULF INJ 10 MG/ML VIAL 5 MG IVP ×2 (02:43→04:38)
[2025-03-07] MEDS: ONDANSETRON INJ 2 MG/ML INJ 2 ML 4 MG IVP ×3 (02:43→17:09)
[2025-03-07] MEDS: levETIRAcetam INJ 100 MG/ML VIAL 5ML 1000 MG IVP (02:44)
[2025-03-07] MEDS: SODIUM CHLORIDE 0.9% 1000 ML 1,000 ML 999 ML IV (02:44)
--- NOTE | 2025-03-07 04:44 | PRELIM_ITS ---
CT scan of the abdomen and pelvis with intravenous contrast (axial sections with sagittal and coronal reformats) March 07, 2025 0314 hours Clinical History: Abdominal pain, melena. Comparison: Reference is made to the prior report dated December 28, 2021. Findings: Tiny lung cysts and minimal pleural thickening is seen at the lung bases. Fatty infiltration of the liver is noted. A few small hypodense lesions are noted in the liver, possibly small hemangiomas. There is mild enhancement of wall of gallbladder, likely reactive. The head of the pancreas is mildly edematous with peripancreatic fat stranding. No focal peripancreatic fluid co llection. There is mild peripancreatic fat stranding. There is mildly prominent pancreatic duct in tail of pancreas, as previously described. There is mild to moderate splenomegaly as previously described. Portal and splenic veins are dilated measuring 1.7 and 1.6 cm respectively. Nonspecific perinephric fat stranding is noted bilaterally. No evidence of renal/ureteric calculus or hydroureteronephrosis. The adrenals are unremarkable. No evidence of bowel obstruction. There is mild thickening of the esophagus, related to mild esophagitis or submucosal varices. There are multiple colonic diverticula without evidence of diverticulitis. Fluid filled small bowel loops are seen, nonspecific or related to ileus. The appendix is within normal limits with appendicoliths in its lumen (axial images [id number]). No contrast extravasation in the stomach, small or large bowel loops to suggest active gastrointestinal hemorrhage at the time of examination. There is no mesenteric or retroperitoneal adenopathy. The urinary bladder is unremarkable. There is no free fluid or free air. Degenerative changes are identified in the spine. The external and internal iliac vessels demonstrate marginal calcification without evidence of aneurysm. Impression: 1. The head of the pancreas is mildly edematous with peripancreatic fat stranding. Acute pancreatitis cannot be excluded. No focal peripancreatic fluid collection. Recommend clinical correlation and follow-up. 2. Splenomegaly with dilated portal and splenic veins. These are concerning for portal hypertension. Recommend clinical correlation. 3. Other findings as described above. Report Electronically Signed By: Chester Zaldivar 03/07/2025 4:43:42 AM [EST]
[2025-03-07] MEDS: PANTOPRAZOLE INJ 40 MG VIAL 80 MG IVP (04:56)
--- NOTE | 2025-03-07 05:24 | ESHP_ITS ---
Documentation for date of: 03/07/25 [facility] History of Present Illness Chief complaint: abd pain and black stools History of present illness: 39-year-old male with past medical history of alcohol abuse disorder, alcohol withdrawal related seizures, alcoholic cirrhosis, GERD, and previous pancreatitis was admitted to the hospital on 03/07/2025 to come to the ED with complaints of abdominal pain and black stools. Patient stated that he was recently abstaining from alcohol and he had not had anything to them for the last 3 months. He stated that yesterday he did relapse and had around 6 beers with the last one being prior to coming to the ED. He stated that he started having this abdominal pain today after he started drinking and he decided to come to the ED. He also mentioned he has been having black stools which started today as well. He mentions he follows up with liver specialist as he was diagnosed with cirrhosis and they were going to do some possible biopsies of his liver and supposedly from his pancreas due to some lesions seen previously. He mentioned that he has had a colonoscopy around a little more than a year ago and also EGDs, which he stated he did not have any varices at this time and was only having gastritis. He denies any nausea or vomiting and denies having any episodes of coffee-ground emesis. He stated that he has done cocaine in the past, but was reluctant to disclose what was the last time he used. Patient was a very poor historian and did not want to give many details. ED course: Initially came in hypertensive, tachycardic, and afebrile. Initial labs were relevant for low hemoglobin, elevated INR, transaminitis, and elevated alcohol levels. Initial imaging abdomen/pelvis CT which did preliminary report showed edema of the pancreas with suspicion for acute pancreatitis, and splenomegaly. PMH: As above Social Hx: Denies any smoking, admits to alcohol and cocaine Surgical Hx: Right knee surgery Medications: Keppra 500 twice daily and gabapentin 600 mg 3 times daily Review of Systems Review of Systems Narrative Review of Systems: Constitutional: Denies sweats, Denies weight loss/gain, Denies fever, Denies chills. HEENT: Denies hearing loss, Denies ear pain, Denies postnasal drip, Denies double vision, Denies blurry vision. Respiratory: Denies shortness of breath, Denies cough, Denies wheezing. Cardiovascular: Denies chest pain, Denies palpitations, Denies sudden loss of consciousness. GI: Denies blood in stool, Admits dark stools, Denies constipation, Admits abdominal pain, Denies difficulty swallowing, Denies nausea or vomit. : Denies urinary incontinence, Denies pain while urinating, Denies increased urinary frequency. MSK: Denies joint pain, Denies joint swelling, Denies numbness. Skin: Denies rash, Denies itching, Denies easy bruising. Neuro: Admits headaches, Denies dizziness, Denies seizures. Past Medical History Past Medical History NEUROLOGIC: Positive Neurological Disorders and Seizures; Negative Cerebrovascular Accident, Transient Ischemic Attacks (TIA), Dementia, Alzheimer's Disease, Parkinson's Disease, Brain Tumor, Meningitis, Epilepsy, Multiple Sclerosis, Cerebral Palsy, Amyotrophic Lateral Sclerosis (ALS/Anya Gehrig's), Guillain-Winters Syndrome, Spina Bifida, Paralysis, Peripheral Neuropathy, Alvares's Palsy, Subdural Hematoma, Migraine, Head Trauma, Spinal Cord Injury or Traumatic Brain Injury CARDIAC: Negative Cardiac Disorders or Congestive Heart Failure RESPIRATORY: Negative Chronic Obstructive Pulmonary Disease (COPD) or Asthma GASTROINTESTINAL: Positive Gastrointestinal Disorders, Pancreatitis and Gastrointestinal Bleed; Negative Hepatitis, Cirrhosis, Celiac Disease, Gall Bladder Disease, Esophageal Varices, Larsen's Esophagus, Colitis, Ulcerative Colitis, Diverticulitis, Diverticulosis, Ulcer, Irritable Bowel, Crohn's Disease, Obstructive Bowel, Hiatal Hernia, Hemorrhoids, Gastroesophageal Reflux Disease or Obesity GENITOURINARY: Negative Genitourinary Disorders or Renal Disease MUSCULOSKELETAL: Positive Musculoskeletal Disorders and Fractures; Negative Muscular Dystrophy, Myasthenia Gravis, Marfan's Syndrome, Arthritis, Rheumatoid Arthritis, Osteoporosis, Degenerative Disk Disease, Gout, Scoliosis, Carpal Tunnel Syndrome, Fibromyalgia, Degenerative Joint Disease, Osteomyelitis or Poliovirus ENT: Negative Cataracts or Head Trauma ENDOCRINE: Negative Endocrine Disorders, Diabetes Mellitus Type 1 or Diabetes Mellitus Type 2 HEMATOLOGIC: Negative Blood Disorders or Sickle Cell Disease PSYCHO/SOCIAL: Positive Psychiatric Problems and Anxiety; Negative Schizophrenia, Recreational Drug Use, Bipolar Disorder, Depression, Behavior Problems, Self-Mutilation, Attention Deficit Disorder, Attention Deficit Hyperactivity Disorder, Depression, Post Traumatic Stress Disorder or Eating Disorder OTHER HISTORY: Positive Blood Transfusions and Chicken Pox; Negative Hospitalization, Autoimmune Disease, Down Syndrome, Autism, Developmental Delay, Shingles, Falls, Blood Transfusion Reaction, Anesthesia Reactions, Organ Transplant, Chemotherapy, Radiation Therapy, Hyperbaric Therapy, MRSA, VRSA, Vancomycin-Resistant Enterococci, Human Immunodeficiency Virus (HIV), Measles, Mumps, Rubella (Occitan Measles), Pertussis, Clostridium Difficile or Cancer Family History FAMILY HISTORY: Positive Family Cardiac Disorders, Family Cancer and Family Surgery; Negative Family Neurologic Problems, Family Psychiatric Problems, Family Respiratory Disorders, Family Gastrointestinal Problems or Family Anesthesia Reaction Surgical History SURGICAL: Negative Cardiac Surgery, Endocrine Surgery, Ear Surgery, Tympanostomy Tube, Eye Surgery, Nose Surgery, Oral Surgery, Tonsillectomy, Adenoidectomy, Cochlear Implant, Corneal Transplant, Throat Surgery, Abdominal Surgery, Tracheostomy, Gastric Bypass Surgery, Gastrostomy, Bowel Surgery, Nephrectomy, Transurethral Resection, Joint Replacement, Amputation, Open Reduction Internal Fixation, Arthroscopy, Neurologic Surgery, Brain Shunt, Vasectomy or Organ Transplant Social History SMOKING STATUS: Never smoker SUBSTANCE USE: does not use Exam Vital Signs Temp Pulse Resp BP Pulse Ox O2 Del Method 98.4 F 88 16 106/79 95 Room Air 03/07/25 04:00 03/07/25 04:00 03/07/25 04:00 03/07/25 04:00 03/07/25 04:00 03/07/25 04:00 Narrative Exam General: A/O x3, no acute distress Eyes: PERRL, EOMI. Anicteric, vision grossly intact. Ears: No ear pain, no ear discharge, Hearing grossly intact. Nose: No nasal discharge. Mouth/Throat: Moist mucous membranes, no redness, no lesions. Neck: Neck supple, non-tender, no cervical lymphadenopathy. Lungs: Clear MARGARITA to auscultation and percussion, No accessory muscle use. Cardio: Normal S1/S2, regular rhythm, no murmurs, no JVD Abdomen: Soft, tender to palpation in upper quadrants, no palpable masses, peristalsis present, no guarding or rebound. Extremities: Symmetrical, no significant deformities, no peripheral edema , non-tender, peripheral pulses presents. Skin: No rashes, no lesions, warm to touch. Neuro: No focal neurological deficits. motor and sensory intact Results: Labs 03/07/25 00:26 03/07/25 00:26 Labs: Short CBC 03/07/25 Range/Units 00:26 WBC 5.2 (3.8-10.6) Thou/mm3 Hgb 10.4 L (13.5-16.0) g/dL Hct 29.6 L (41.0-53.0) % Plt Count 105 L (140-440) Thou/mm3 [facility] 03/07/25 00:26 Sodium 143 Potassium 3.7 Chloride 106 Carbon Dioxide 21.5 BUN < 5 L Creatinine 0.7 Glucose 104 Calcium 8.4 Liver Function 03/07/25 Range/Units 00:26 Total Bilirubin 1.2 (0.3-1.2) mg/dL AST 67 H (0-34) U/L ALT 18 (10-49) U/L Alkaline Phosphatase 172 H (46-116) U/L Albumin 3.4 L (3.5-5.0) gm/dL Quality Measures Quality Measures none Medications Home Medications and Allergies Home Medications ?Medication ?Instructions ?Recorded ?Confirmed ?Type ferrous sulfate 325 mg (65 mg 325 mg PO EVERYOTHERDAY 01/06/25 01/06/25 History iron) tablet naltrexone 50 mg tablet 50 mg PO BID 01/06/25 History pantoprazole 20 mg tablet,delayed 20 mg PO QDAY 01/06/25 History release vits,calcium no.78-iron 1 tab PO Q24H 5 01/06/25 History fumarate-folic acid 29 mg-1 mg tablet (Prenatabs FA) terbinafine HCl 250 mg tablet 250 mg PO QDAY 01/06/25 01/06/25 History Allergies Allergy/AdvReac Type Severity Reaction Status Date / Time No Known Allergies Allergy Verified 03/06/25 22:54 Visit Medications Acetaminophen (Acetaminophen 325 Mg Tablet) 650 mg PO Q6H PRN PRN Reason: pain and Fever >100.4 Stop: 04/06/25 05:16 Hydrocodone Bitart/Acetaminophen (Hydrocodone/Apap 5/325 Tablet) 1 tab PO Q4HR PRN PRN Reason: PAIN SCALE 4-6 (Moderate Stop: 03/12/25 05:16 Folic Acid (Folic Acid 1 Mg Tablet) 1 mg PO BID CHER Stop: 03/12/25 08:59 Sodium Chloride (Ns) 1,000 mls @ 90 mls/hr IV .Q11H7M CHER Stop: 04/06/25 05:29 Levetiracetam (Levetiracetam Liqd 500 Mg/5 Ml Udc) 500 mg PO BID [facility] Stop: 04/06/25 08:59 Lorazepam (Lorazepam 0.5 Mg Tablet) 0.5 mg PO Q4HR PRN PRN Reason: CIWA Score 2-6 Stop: 03/12/25 05:16 Lorazepam (Lorazepam 0.5 Mg Tablet) 1 mg PO Q4HR PRN PRN Reason: CIWA SCORE 7-11 Stop: 03/12/25 05:16 Lorazepam (Lorazepam 0.5 Mg Tablet) 2 mg PO Q4HR PRN PRN Reason: CIWA SCORE 12-15 Stop: 03/12/25 05:16 Morphine Sulfate (Morphine Sulf Inj 10 Mg/Ml Vial) 1 mg IVP Q2H PRN PRN Reason: PAIN SCALE 7-10 (Severe Stop: 03/12/25 05:16 Ondansetron HCl (Ondansetron Inj 2 Mg/Ml Inj 2 Ml) 4 mg IVP Q6H PRN; Protocol PRN Reason: NAUSEA OR VOMITING Stop: 04/06/25 05:16 Pantoprazole Sodium (Pantoprazole Inj 40 Mg Vial) 40 mg IVP QDAY [facility] Stop: 04/07/25 08:59 Thiamine HCl (Thiamine 100 Mg Tablet) 100 mg PO BID [facility] Stop: 03/12/25 08:59 Discontinued Medications Sodium Chloride (Ns) 1,000 mls @ 999 mls/hr IV .Q1H1M ONE Stop: 03/07/25 03:19 Last Infusion: 03/07/25 04:32 Dose: Infused Levetiracetam (Levetiracetam Inj 100 Mg/Ml Vial 5ml) 1,000 mg IVP X1 ONE Stop: 03/07/25 02:20 Last Admin: 03/07/25 02:44 Dose: 1,000 mg Morphine Sulfate (Morphine Sulf Inj 10 Mg/Ml Vial) 5 mg IVP X1 ONE Stop: 03/07/25 02:20 Last Admin: 03/07/25 02:43 Dose: 5 mg Morphine Sulfate (Morphine Sulf Inj 10 Mg/Ml Vial) 5 mg IVP X1 ONE Stop: 03/07/25 04:31 Last Admin: 03/07/25 04:38 Dose: 5 mg Ondansetron HCl (Ondansetron Inj 2 Mg/Ml Inj 2 Ml) 4 mg IVP X1 ONE Stop: 03/07/25 02:20 Last Admin: 03/07/25 02:43 Dose: 4 mg Ondansetron HCl (Ondansetron Inj 2 Mg/Ml Inj 2 Ml) 4 mg IVP X1 ONE; Protocol Stop: 03/07/25 04:31 Last Admin: 03/07/25 04:39 Dose: 4 mg Pantoprazole Sodium (Pantoprazole Inj 40 Mg Vial) 80 mg IVP X1 ONE Stop: 03/07/25 04:51 Last Admin: 03/07/25 04:56 Dose: 80 mg Assessment & Plan Plan 39-year-old male with past medical history of alcohol abuse disorder, alcohol withdrawal related seizures, alcoholic cirrhosis, GERD, and previous pancreatitis was admitted to the hospital on 03/07/2025 for acute pancreatitis, possible GI bleed in the setting of black starry stools, and possible alcohol withdrawal. #Acute pancreatitis #Possible GI bleed #Melena #Coagulopathy #Alcohol use disorder #Alcoholic cirrhosis #Hx of alcohol withdrawal related seizures Patient came in with complaints of abdominal pain after he started drinking today around 6 beers. He also mentioned that he had some black starry stools that started today. Patient has a history of pancreatitis in the past and stated that he was not drinking for the past 3 months, but that yesterday he did have a relapse. Last drink was before coming to the ED CIWA on assessment was 2 Patient alcohol levels were 405.5 Hemoglobin is stable at 10.4 Lipase was negative at 26 Abdomen/pelvis CT showed edema of pancreas concerning for acute pancreatitis Plan: IV fluids Pain control CIWA protocol ordered Restart patient's home Keppra 500 mg twice daily Fecal occult blood ordered Lipid panel ordered N.p.o. Consider GI consult if patient's hemoglobin drops and continues to have melena or any new signs of bleeding. Disposition: Patient admitted to [facility] for pancreatitis. Diet: NPO GI prophylaxis: protonix DVT prophylaxis: SCDs Code: Full Case disclosed with Attending Dr. Michelle Moser PGY1 Disclaimer: Even though this this note was dictated by speech recognition and even though it was carefully revised there may still be minor errors in annealing oven operator due to voice recognition software. Attending Provider Attestation/Addendum I reviewed labs, imaging, EKG, home medications and prior available records. Face to face evaluation was performed by me. I have personally examined the patient and discussed assessment and plan with the IM team. I reviewed the resident note and agree with the plan with exceptions as below. Acute pancreatitis History of seizures Alcohol intoxication Alcohol abuse Started IV fluids Management of pain/nausea/vomiting as needed Start [facility] protocol Monitor for withdrawal Counseled the patient regarding the importance of avoiding alcohol use. He is interested in quitting
[2025-03-07] MEDS: SODIUM CHLORIDE 0.9% 1000 ML 1,000 ML 90 ML IV (07:46)
[2025-03-07] MEDS: HYDROcodone/APAP 5/325 TABLET 1 TAB PO ×2 (07:46→13:22)
[2025-03-07] MEDS: LORazepam 0.5 MG TABLET PO ×2 (07:46→17:41)
[2025-03-07] MEDS: FOLIC ACID 1 MG TABLET PO ×2 (08:50→21:37)
[2025-03-07] MEDS: levETIRAcetam LIQD 500 MG/5 ML UDC PO ×2 (08:50→21:32)
[2025-03-07] MEDS: THIAMINE 100 MG TABLET PO ×2 (08:50→21:37)
[2025-03-07 11:08] LABS: Hematocrit 26.7 % (41.0-53.0)
[2025-03-07 11:21] LABS: Cardiac Risk Estimate 2.3 RATIO (4.0-6.7); Cholesterol 95 mg/dL (132-200); HDL Cholesterol 42 mg/dL (40-60); LDL Cholesterol,Calculated 39 mg/dL (0-130); Triglycerides 70 mg/dL (30-150)
[2025-03-07] MEDS: LORazepam 0.5 MG TABLET 1 MG PO (13:22)
[2025-03-07] MEDS: cefTRIAXone/D5w 1gm IV premix 1 GM/50 ML BAG IV (14:52)
[2025-03-07] MEDS: DEXTROSE 5%-NS 1,000 ML 150 ML IV ×2 (14:53→22:05)
[2025-03-07] MEDS: OCTREOTIDE ACET INJ 1,000 MCG in SODIUM CHLORIDE 0.9% 100 ML 5.1 MCG IV (16:23)
[2025-03-07] MEDS: OCTREOTIDE ACET INJ 50 mCg/ML VIAL IV (16:23)
--- NOTE | 2025-03-07 16:30 | PC.SS ---
Patient is alert/oriented. Patient states he is from [place]. He is now living with his brother. Patient does not remember his address. Brother, Timothy @ [phone]. Patient was admitted for gi bleed. Patient is independendt with ADLs. Patient PcP: Tessy Sahni NP @ [facility]. Patient also follows in [place] for his liver specialist. Patient last apt was a week ago. Patient is pending a lung biopsy. Alt medical decision maker is Yumiko, , . Patient family provides transportation assistance. Pharmacy: [facility]. D/c plan: home . Community resources provided.
--- NOTE | 2025-03-07 16:36 | ESPR_ITS ---
<Statement entered by Sarkis Borja MD - 03/08/25 13:42> Patient was admitted overnight for abdominal pain and black tarry stools for the last few days. Patient has history of cirrhosis secondary to alcohol usage. Lab were significant for HegB 9, AST 67, T bili 1.2. CT indicated cirrhosis, splenomegaly and portal hypertension. Patient admitted for GI workup, Dr. Hawkins consulted, Rocephin and octreotide drip started. I discussed with and supervised the internal audit consultant physician involved in the care of this patient. Patient assessment and plan was discussed with entire medicine team, including my attending. I agree with the assessment and plan as documented by internal audit consultant doctor. Patient care was discussed with my attending physician Dr. Herson Borja, PGY-2 Documentation for date of: 03/07/25 Subjective Subjective Interval history: Patient is seen and examined at bedside No acute overnight events. Complaining of mild abdominal discomfort and reported that he is feeling thirsty Labs showed hemoglobin 9, platelets 105, INR 1.4, AST 67, total bilirubin 1.2, albumin 3.4 CT abdomen/pelvis showed cirrhosis, splenomegaly and portal hypertension at the time of admission Patient also complained of darkish discoloration of stools, consulted Dr. Hawkins as patient might require upper GI endoscopy to rule out varices Patient was started on ceftriaxone 1 g IV daily and octreotide drip Exam Vital Signs Temp Pulse Resp BP Pulse Ox O2 Del Method 97.3 F 92 16 113/82 100 Room Air 03/07/25 16:00 03/07/25 16:00 03/07/25 16:00 03/07/25 16:00 03/07/25 16:00 03/07/25 16:00 Narrative Exam General: Awake. HEENT: Normocephalic, atraumatic, mucous membranes moist. Heart: Regular rate and rhythm, no murmurs. Lungs: Clear to auscultation with no wheezing or crackles. Abdomen: Soft, nondistended, noted tenderness in epigastric area and left lower quadrant, positive bowel sounds. ?No guarding or rebound tenderness. Neurologic: Alert and oriented x3, no gross neurological deficit, and patient able to move all 4 extremities. Extremities: No edema. Skin: No rash or ecchymoses. Objective Labs 03/08/25 05:35 03/08/25 05:35 Labs: Laboratory Results - last 24 hr 03/07/25 03/07/25 00:26 10:45 WBC 5.2 RBC 3.40 L Hgb 10.4 L 9.0 L Hct 29.6 L 26.7 L MCV 87 MCH 30.6 MCHC 35.1 RDW Std Deviation 50.9 H Plt Count 105 L Neut % (Auto) 47 Lymph % (Auto) 48 [place] % (Auto) 4 Eos % (Auto) 0 Baso % (Auto) 1 Neut # (Auto) 2.5 Lymph # (Auto) 2.5 [place] # (Auto) 0.2 Eos # (Auto) 0.0 Baso # (Auto) 0.0 Immature Gran # (Auto) 0.01 H Absolute Nucleated RBC 0.00 Immature Gran % 0 Nucleated RBC % 0 PT 14.6 H INR 1.4 H APTT 34.9 Sodium 143 Potassium 3.7 Chloride 106 Carbon Dioxide 21.5 Anion Gap 16 BUN < 5 L Creatinine 0.7 Estim Creat Clear Calc 121.2 eGFR > 60 BUN/Creatinine Ratio 7 L Glucose 104 Calculated Osmolality 282 Calcium 8.4 Corrected Calcium 8.9 Total Bilirubin 1.2 AST 67 H ALT 18 Alkaline Phosphatase 172 H Total Protein 8.7 H Albumin 3.4 L Globulin 5.3 H Albumin/Globulin Ratio 0.6 L Triglycerides 70 Cholesterol 95 L LDL Cholesterol, Calc 39 HDL Cholesterol 42 Cholesterol/HDL Ratio 2.3 L Lipase 26 Ethyl Alcohol 405.5 H* Quality Measures Quality Measures none Assessment & Plan Assessment Current Active Medications: Generic Name Dose Route Start Last Admin Trade Name Black PRN Reason Stop Dose Admin Acetaminophen 650 mg 03/07/25 05:17 Acetaminophen 325 Mg Tablet PO 04/06/25 05:16 Q6H PRN pain 1-3 and Fever >100.4 Hydrocodone Bitart/Acetaminophen 1 tab 03/07/25 05:17 03/07/25 13:22 Hydrocodone/Apap 5/325 Tablet PO 03/12/25 05:16 1 tab Q4HR PRN Administration PAIN SCALE 4-6 (Moderate Folic Acid 1 mg 03/07/25 09:00 03/07/25 08:50 Folic Acid 1 Mg Tablet PO 03/12/25 08:59 1 mg BID CHER Administration Octreotide Acetate 1,000 mcg/ 102 mls @ 5.1 mls/hr 03/07/25 13:27 03/07/25 16:23 Sodium Chloride IV 03/12/25 13:27 50 mcg/hr .Q20H CHER 5.1 mls/hr Administration Protocol 50 MCG/HR Ceftriaxone Sodium/Dextrose 1 gm in 50 mls @ 100 mls/hr 03/07/25 14:03 03/07/25 14:52 Rocephin/D5w 1gm Iv Premix IV 03/14/25 14:02 100 mls/hr QDAY CHER Administration Dextrose/Sodium Chloride 1,000 mls @ 150 mls/hr 03/07/25 14:15 03/07/25 14:53 D5-Ns IV 04/06/25 14:14 150 mls/hr .Q6H40M CHER Administration Levetiracetam 500 mg 03/07/25 09:00 03/07/25 08:50 Levetiracetam Liqd 500 Mg/5 Ml Udc PO 04/06/25 08:59 500 mg BID CHER Administration Lorazepam 0.5 mg 03/07/25 05:17 03/07/25 07:46 Lorazepam 0.5 Mg Tablet PO 03/12/25 05:16 0.5 mg Q4HR PRN Administration CIWA Score 2-6 Lorazepam 1 mg 03/07/25 05:17 03/07/25 13:22 Lorazepam 0.5 Mg Tablet PO 03/12/25 05:16 1 mg Q4HR PRN Administration CIWA SCORE 7-11 Lorazepam 2 mg 03/07/25 05:17 Lorazepam 0.5 Mg Tablet PO 03/12/25 05:16 Q4HR PRN CIWA SCORE 12-15 Morphine Sulfate 1 mg 03/07/25 05:17 Morphine Sulf Inj 10 Mg/Ml Vial IVP 03/12/25 05:16 Q2H PRN PAIN SCALE 7-10 (Severe Ondansetron HCl 4 mg 03/07/25 05:17 Ondansetron Inj 2 Mg/Ml Inj 2 Ml IVP 04/06/25 05:16 Q6H PRN NAUSEA OR VOMITING Protocol Pantoprazole Sodium 40 mg 03/07/25 21:00 Pantoprazole Inj 40 Mg Vial IVP 04/06/25 20:59 BID CHER Thiamine HCl 100 mg 03/07/25 09:00 03/07/25 08:50 Thiamine 100 Mg Tablet PO 03/12/25 08:59 100 mg BID CHER Administration Plan 39-year-old male with past medical history of alcohol abuse disorder, alcohol withdrawal related seizures, alcoholic cirrhosis, GERD, and previous pancreatitis was admitted to the hospital on 03/07/2025 for acute pancreatitis, possible GI bleed in the setting of black starry stools, and possible alcohol withdrawal. #GI bleed, likely upper - varices vs Gastritis vs PUD #Melena #Coagulopathy #Alcoholic cirrhosis with splenomegaly #Hx of alcohol withdrawal related seizures Patient came in with complaints of abdominal pain after he started drinking today around 6 beers. He also mentioned that he had some black starry stools that started today. Patient has a history of pancreatitis in the past and stated that he was not drinking for the past 3 months, but he did have a relapse the day before the day of admission Last drink was before coming to the ED CIWA on assessment was 2 Patient alcohol levels were 405.5 Hemoglobin is stable at 10.4 Lipase was negative at 26 Abdomen/pelvis CT showed edema of pancreas concerning for acute pancreatitis, cirrhosis, significant splenomegaly, mild ascites INR is 1.4 Plan: IV fluids, DNS at 125 mL/h Pain control CIWA protocol ordered Started on Librium 25 mg 3 times daily Restarted patient's home Keppra 500 mg twice daily Fecal occult blood ordered N.p.o. Started on pantoprazole 40 Mg IV push twice daily and octreotide drip in view of underlying cirrhosis and portal hypertension Ceftriaxone 1 g IV daily in view of suspected GI bleed in the setting of cirrhosis Dr. Hawkins is consulted, will appreciate his recommendations Disposition: Patient admitted to [facility] for pancreatitis. Diet: NPO GI prophylaxis: protonix DVT prophylaxis: SCDs Code: Full Patient plan of care was discussed with the attending physician, Dr. Bains and senior resident Dr. Huong Richter, PGY1 Attending Provider Attestation/Addendum I attest that I was physically present for the evaluation, physical examination, lab and imaging review of the patient with the residents. I discussed the case with the residents and agree with the findings and plans of care as documented above. Patient is a 39 years old male with past medical history of alcohol abuse, alcohol withdrawal, seizure disorder, cirrhosis, GERD and pancreatitis who was admitted overnight for possible GI bleed, suspicion of pancreatitis and alcohol intoxication/withdrawal. At bedside today, patient appears anxious and is complaining of thirst. Lipase level came back normal level, lower suspicion for pancreatitis. Discussed with GI regarding melena, recommended starting patient on acute right. Also started him on Rocephin for SBP prophylaxis, continues to be on CIWA protocol, patient is planned for EGD tomorrow. Started on D5 NS at 125 cc/h. Patient is already on multivitamins, Protonix IV twice daily and Librium. Maria Luisa Bains MD
[2025-03-07] MEDS: MORPHINE SULF INJ 10 MG/ML VIAL IVP (17:42)
--- NOTE | 2025-03-07 20:45 | PD.IMCONS ---
HPI Data of Consult Requesting Physician: Tyler Martinez MD Primary Care Provider: VIRIDIANA Wilson Consult Narrative Reason for consult: Melena History of present illness: 39 years old male came to the emergency room because of melanotic stools and the presenting hemoglobin hematocrit of 10.4 and 29.6 which is subsequently going down to 9.0 and 26.7 Platelet count is 105,000 Total bilirubin is 1.3 AST ALT 67 and 89 alk phos of 172 CT scan of the abdomen pelvis with contrast showed cirrhotic liver disease splenomegaly mild ascites portal hypertensive gastropathy and edema of the head of the pancreas MRCP done on 01/07/2025 showed the possibility of a small distal CBD stone cc:: cc: Tyler Martinez MD Review of Systems Review of Systems Systems Reviewed: All systems reviewed, normal except as documented Meds Home Medications and Allergies Home Medications ?Medication ?Instructions ?Recorded ?Confirmed ?Type ferrous sulfate 325 mg (65 mg 325 mg PO EVERYOTHERDAY 01/06/25 03/07/25 History iron) tablet terbinafine HCl 250 mg tablet 250 mg PO QDAY 01/06/25 03/07/25 History gabapentin 600 mg tablet 600 mg PO TID 03/07/25 03/07/25 History hydralazine 25 mg tablet 25 mg PO BID 03/07/25 03/07/25 History levetiracetam 500 mg tablet 500 mg PO Q12H 03/07/25 03/07/25 History pantoprazole 40 mg tablet,delayed 40 mg PO BID 03/07/25 03/07/25 History release penicillin V potassium 500 mg 125 mg PO BID 03/07/25 03/07/25 History tablet Allergies Allergy/AdvReac Type Severity Reaction Status Date / Time No Known Allergies Allergy Verified 03/06/25 22:54 Exam Vital Signs Temp Pulse Resp BP Pulse Ox O2 Del Method 98.0 F 70 18 120/79 99 Room Air 03/07/25 20:00 03/07/25 20:00 03/07/25 20:00 03/07/25 20:00 03/07/25 20:00 03/07/25 20:00 Routine Respiratory Exam Comments: Normal to auscultation Routine Abdominal Exam Comments: Soft positive bowel sounds positive ascites Results Labs 03/07/25 10:45 03/07/25 00:26 Labs: Short CBC 03/07/25 03/07/25 Range/Units 00:26 10:45 WBC 5.2 (3.8-10.6) Thou/mm3 Hgb 10.4 L 9.0 L (13.5-16.0) g/dL Hct 29.6 L 26.7 L (41.0-53.0) % Plt Count 105 L (140-440) Thou/mm3 BMP 03/07/25 00:26 Sodium 143 Potassium 3.7 Chloride 106 Carbon Dioxide 21.5 BUN < 5 L Creatinine 0.7 Glucose 104 Calcium 8.4 Liver Function 03/07/25 Range/Units 00:26 Total Bilirubin 1.2 (0.3-1.2) mg/dL AST 67 H (0-34) U/L ALT 18 (10-49) U/L Alkaline Phosphatase 172 H (46-116) U/L Albumin 3.4 L (3.5-5.0) gm/dL Assessment and Plan Additional Assessment & Plan Additional Plan: # melena most likely related to upper GI bleed secondary to hypertensive portal gastropathy possibly mucosal oozing of blood and may be esophageal variceal bleed # Chronic liver disease secondary to alcohol Plan Consent obtained for fiberoptic esophagogastroduodenoscopy with possible therapeutic intervention possible biopsy under intravenous moderate sedation scheduled for tomorrow morning N.p.o. midnight tonight Octreotide infusion at 50 mcg/h IV Protonix Serial CBC Advised complete abstinence from alcohol Thank you very much for the opportunity to participate in care of this patient #
[2025-03-07] MEDS: METOCLOPRAMIDE INJ 5 MG/ML VIAL 2 ML 10 MG IVP (20:50)
[2025-03-07] MEDS: PANTOPRAZOLE INJ 40 MG VIAL IVP (21:24)
[2025-03-07] MEDS: chlordiazePOXIDE HCl 25 MG CAPSULE PO (21:32)
[2025-03-08] VITALS (16 sets, daily range): BP systolic 108–149; BP diastolic 67–112; PULSE 61–92; RESP 15–96; TEMP 36.1–37.1; O2SAT 96–100; BMI 22.2
[2025-03-08] MEDS: MORPHINE SULF INJ 10 MG/ML VIAL IVP (01:02)
[2025-03-08] MEDS: chlordiazePOXIDE HCl 25 MG CAPSULE PO ×3 (05:23→22:20)
[2025-03-08 06:29] LABS: Basophils % (Auto) 1 % (0-2.5); Eosinophils % (Auto) 2 % (0-10); Hematocrit 24.1 % (41.0-53.0); Immature Granulocytes % (Auto) 1 % (0-0); Immature Granulocytes Auto 0.01 Thou/mm3 (0.00-0.00); Lymphocytes # (Auto) 0.6 Thou/mm3 (1.0-4.8); Lymphocytes % (Auto) 43 % (10-50); Mean Corpuscular Hemoglobin 31.2 pg (25.0-35.0); Mean Corpuscular Volume 92 fL (80-100); Monocytes # (Auto) 0.1 Thou/mm3 (0.0-0.8); Monocytes % (Auto) 9 % (0-12); Neutrophils # (Auto) 0.6 Thou/mm3 (1.8-7.7); Neutrophils % (Auto) 45 % (37-80); Nucleated Red Blood Cell % 0 /100 WBC (0); RDW Standard Deviation 51.4 fL (35.1-43.9); Red Blood Count 2.63 Miln/mm3 (4.50-5.90)
[2025-03-08 06:31] LABS: INR 1.5 (0.9-1.3); Prothrombin Time 16.1 Seconds (9.0-12.2)
[2025-03-08 06:41] LABS: Hemoglobin 8.2 g/dL (13.5-16.0); Platelet Count 59 Thou/mm3 (140-440); White Blood Count 1.3 Thou/mm3 (3.8-10.6)
[2025-03-08 06:54] LABS: Alanine Aminotransferase 11 U/L (10-49); Anion Gap 11 (7-16); Aspartate Amino Transferase 47 U/L (0-34); BUN/Creatinine Ratio 8 Ratio (12-20); Bilirubin,Total 1.1 mg/dL (0.3-1.2); Blood Urea Nitrogen < 5 mg/dL (9-23); Calcium 7.8 mg/dL (8.3-10.6); Carbon Dioxide 25.3 mMol/L (20.0-31.0); Chloride 105 mMol/L (98-107); Creatinine (Component) 0.6 mg/dL (0.6-1.3); Estimated Creatinine Clearance 147.6 mL/min (>60); Glucose 171 mg/dL (74-106); Magnesium 1.2 mg/dL (1.6-2.6); Osmolality,Calculated 282 (275-295); Phosphorous 2.9 mg/dL (2.4-5.1); Potassium 3.8 mMol/L (3.4-5.1); Sodium 141 mMol/L (136-145); eGFR > 60 See Note
[2025-03-08 06:55] LABS: Albumin, Serum 2.8 gm/dL (3.5-5.0); Albumin/Globulin Ratio 0.7 (1.2-2.2); Alkaline Phosphatase 147 U/L (46-116); Calcium (Corrected) 8.8 mg/dL (8.5-10.1); Globulin 4.2 gm/dL (2.3-3.5)
[2025-03-08 06:57] LABS: Path Review Blood Smear Sent to Pathologist; Slide Review Platelets confirmed
[2025-03-08] MEDS: PANTOPRAZOLE INJ 40 MG VIAL IVP ×2 (08:25→20:14)
[2025-03-08] MEDS: levETIRAcetam LIQD 500 MG/5 ML UDC PO ×2 (08:25→20:14)
[2025-03-08] MEDS: THIAMINE 100 MG TABLET PO ×2 (08:25→20:14)
[2025-03-08] MEDS: FOLIC ACID 1 MG TABLET PO ×2 (08:25→20:14)
[2025-03-08] MEDS: cefTRIAXone/D5w 1gm IV premix 1 GM/50 ML BAG IV (08:26)
[2025-03-08 09:37] LABS: Immature Reticulocyte Fraction 28.9 % (2.3-13.4); Reticulocyte % (Auto) 2.5 % (0.5-1.5); Reticulocyte Absolute Auto 64.9 Biln/L (25.0-75.0); Reticulocyte Hgb Content 38.5 pg (28.0-35.0)
[2025-03-08] MEDS: OCTREOTIDE ACET INJ 1,000 MCG in SODIUM CHLORIDE 0.9% 100 ML 5.1 MCG IV (10:33)
[2025-03-08 11:41] LABS: Lipase 16 U/L (12-53)
--- NOTE | 2025-03-08 15:52 | PC.SS ---
SS follow up note; Pending endoscopy, possible discharge home tomorrow.
--- NOTE | 2025-03-08 17:26 | ESPR_ITS ---
<Statement entered by Sarkis Borja MD - 03/10/25 02:14> I discussed with and supervised the internal sales physician involved in the care of this patient. Patient assessment and plan was discussed with entire medicine team, including my attending. I agree with the assessment and plan as documented by internal sales doctor. Patient care was discussed with my attending physician Dr.Bishwakarma Sarkis Borja, PGY-2 Documentation for date of: 03/08/25 Subjective Subjective Interval history: Patient is seen and examined at bedside No acute overnight events. Patient still complaining of mild abdominal pain and endorsed that he is feeling thirsty Labs showed pancytopenia. Physical examination remains unchanged Started on the NS at 100 mL/h. Pending EGD today by Dr. Hawkins Will continue octreotide drip and pantoprazole for now Exam Vital Signs Temp Pulse Resp BP Pulse Ox O2 Del Method O2 Flow Rate 98.0 F 85 17 138/91 H 99 Room Air 3 03/08/25 16:37 03/08/25 17:03 03/08/25 17:03 03/08/25 17:03 03/08/25 17:03 03/08/25 12:00 03/08/25 16:35 Narrative Exam General: Awake. HEENT: Normocephalic, atraumatic, mucous membranes moist. Heart: Regular rate and rhythm, no murmurs. Lungs: Clear to auscultation with no wheezing or crackles. Abdomen: Soft, nondistended, noted tenderness in epigastric area and left lower quadrant, positive bowel sounds. ?No guarding or rebound tenderness. Neurologic: Alert and oriented x3, no gross neurological deficit, and patient able to move all 4 extremities. Extremities: No edema. Skin: No rash or ecchymoses. Objective Labs 03/11/25 05:38 03/11/25 05:38 Labs: Laboratory Results - last 24 hr 03/08/25 05:35 WBC 1.3 L D RBC 2.63 L Hgb 8.2 L Hct 24.1 L MCV 92 MCH 31.2 MCHC 34.0 RDW Std Deviation 51.4 H Plt Count 59 L D Neut % (Auto) 45 Lymph % (Auto) 43 [place] % (Auto) 9 Eos % (Auto) 2 Baso % (Auto) 1 Neut # (Auto) 0.6 L Lymph # (Auto) 0.6 L [place] # (Auto) 0.1 Eos # (Auto) 0.0 Baso # (Auto) 0.0 Immature Gran # (Auto) 0.01 H Absolute Nucleated RBC 0.00 Immature Gran % 1 H Nucleated RBC % 0 Smear Path Review Sent to Pathologist Retic Count (auto) 2.5 H Absolute Retic 64.9 Immature Retic Fraction 28.9 H Retic Hgb Content CHr 38.5 H PT 16.1 H INR 1.5 H Sodium 141 Potassium 3.8 Chloride 105 Carbon Dioxide 25.3 Anion Gap 11 BUN < 5 L Creatinine 0.6 Estim Creat Clear Calc 147.6 eGFR > 60 BUN/Creatinine Ratio 8 L Glucose 171 H D Calculated Osmolality 282 Calcium 7.8 L Corrected Calcium 8.8 Phosphorus 2.9 Magnesium 1.2 L Total Bilirubin 1.1 AST 47 H ALT 11 Alkaline Phosphatase 147 H D Total Protein 7.0 Albumin 2.8 L D Globulin 4.2 H Albumin/Globulin Ratio 0.7 L Lipase 16 D Misc Test Result Platelets confirmed Quality Measures Quality Measures none Assessment & Plan Assessment Current Active Medications: Generic Name Dose Route Start Last Admin Trade Name Freq PRN Reason Stop Dose Admin Acetaminophen 650 mg 03/07/25 05:17 Acetaminophen 325 Mg Tablet PO 04/06/25 05:16 Q6H PRN pain 1-3 and Fever >100.4 Hydrocodone Bitart/Acetaminophen 1 tab 03/07/25 05:17 03/07/25 13:22 Hydrocodone/Apap 5/325 Tablet PO 03/12/25 05:16 1 tab Q4HR PRN Administration PAIN SCALE 4-6 (Moderate Chlordiazepoxide HCl 25 mg 03/07/25 22:00 03/08/25 13:47 Chlordiazepoxide Hcl 25 Mg Capsule PO 03/12/25 21:59 25 mg Q8HR CHER Administration Diphenhydramine HCl 25 mg 03/08/25 16:21 Diphenhydramine Inj 50 Mg/Ml Vial IVP 03/08/25 18:21 [id number] PRN MODERATE SEDATION Fentanyl Citrate 50 mcg 03/08/25 16:21 Fentanyl Cit Inj 50 Mcg/Ml Amp 2ml IVP 03/08/25 18:21 Q2M PRN MODERATE SEDATION Folic Acid 1 mg 03/07/25 09:00 03/08/25 08:25 Folic Acid 1 Mg Tablet PO 03/12/25 08:59 1 mg BID CHER Administration Octreotide Acetate 1,000 mcg/ 102 mls @ 5.1 mls/hr 03/07/25 13:27 03/08/25 10:33 Sodium Chloride IV 03/12/25 13:27 50 mcg/hr .Q20H CHER 5.1 mls/hr Administration Protocol 50 MCG/HR Ceftriaxone Sodium/Dextrose 1 gm in 50 mls @ 100 mls/hr 03/07/25 14:03 03/08/25 08:26 Rocephin/D5w 1gm Iv Premix IV 03/14/25 14:02 100 mls/hr QDAY CHER Administration Dextrose/Sodium Chloride 1,000 mls @ 100 mls/hr 03/08/25 15:30 D5-Ns IV 03/09/25 01:29 .Q10H CHER Levetiracetam 500 mg 03/07/25 09:00 03/08/25 08:25 Levetiracetam Liqd 500 Mg/5 Ml Udc PO 04/06/25 08:59 500 mg BID CHER Administration Lorazepam 0.5 mg 03/07/25 05:17 03/07/25 17:41 Lorazepam 0.5 Mg Tablet PO 03/12/25 05:16 0.5 mg Q4HR PRN Administration CIWA Score 2-6 Lorazepam 1 mg 03/07/25 05:17 03/07/25 13:22 Lorazepam 0.5 Mg Tablet PO 03/12/25 05:16 1 mg Q4HR PRN Administration CIWA SCORE 7-11 Lorazepam 2 mg 03/07/25 05:17 Lorazepam 0.5 Mg Tablet PO 03/12/25 05:16 Q4HR PRN CIWA SCORE 12-15 Midazolam HCl 2 mg 03/08/25 16:21 Midazolam Inj 1 Mg/Ml Vial 2 Ml IVP 03/08/25 18:21 Q2M PRN Moderate Sedation Morphine Sulfate 1 mg 03/07/25 05:17 03/08/25 01:02 Morphine Sulf Inj 10 Mg/Ml Vial IVP 03/12/25 05:16 1 mg Q2H PRN Administration PAIN SCALE 7-10 (Severe Ondansetron HCl 4 mg 03/07/25 05:17 03/07/25 17:09 Ondansetron Inj 2 Mg/Ml Inj 2 Ml IVP 04/06/25 05:16 4 mg Q6H PRN Administration NAUSEA OR VOMITING Protocol Pantoprazole Sodium 40 mg 03/07/25 21:00 03/08/25 08:25 Pantoprazole Inj 40 Mg Vial IVP 04/06/25 20:59 40 mg BID CHER Administration Thiamine HCl 100 mg 03/07/25 09:00 03/08/25 08:25 Thiamine 100 Mg Tablet PO 03/12/25 08:59 100 mg BID CHER Administration Plan 39-year-old male with past medical history of alcohol abuse disorder, alcohol withdrawal related seizures, alcoholic cirrhosis, GERD, and previous pancreatitis was admitted to the hospital on 03/07/2025 for acute pancreatitis, possible GI bleed in the setting of black starry stools, and possible alcohol withdrawal. # Pancytopenia # Likely secondary to alcohol abuse combined with underlying splenic sequestration - WBC is 1.3, hemoglobin 8.2, platelets 59 - Patient reported that he had history of pancytopenia for a while now -Peripheral smear did not show any significant abnormality Plan -Reticulocyte count is ordered - Vitamin B12, folate is ordered - Will continue iron supplements - Patient was placed on reverse isolation precautions #GI bleed, likely upper - varices vs Gastritis vs PUD #Melena #Coagulopathy #Alcoholic cirrhosis with splenomegaly #Hx of alcohol withdrawal related seizures Patient came in with complaints of abdominal pain after he started drinking today around 6 beers. He also mentioned that he had some black starry stools that started today. Patient has a history of pancreatitis in the past and stated that he was not drinking for the past 3 months, but he did have a relapse the day before the day of admission Last drink was before coming to the ED CIWA on assessment was 2 Patient alcohol levels were 405.5 Hemoglobin is stable at 10.4 Lipase was negative at 26 Abdomen/pelvis CT showed edema of pancreas concerning for acute pancreatitis, cirrhosis, significant splenomegaly, mild ascites INR is 1.4 Plan: IV fluids, DNS at 100 mL/h Pain control CIWA protocol ordered Started on Librium 25 mg 3 times daily Restarted patient's home Keppra 500 mg twice daily Fecal occult blood ordered N.p.o. Started on pantoprazole 40 Mg IV push twice daily and octreotide drip in view of underlying cirrhosis and portal hypertension Ceftriaxone 1 g IV daily in view of suspected GI bleed in the setting of cirrhosis Dr. Hawkins is consulted, will appreciate his recommendations, pending EGD today Disposition: Patient admitted to [facility] for pancreatitis. Diet: NPO GI prophylaxis: protonix DVT prophylaxis: SCDs Code: Full Patient plan of care was discussed with the attending physician, Dr. Bains and senior resident Dr. Huong Richter, PGY1 Attending Provider Attestation/Addendum I attest that I was physically present for the evaluation, physical examination, lab and imaging review of the patient with the residents. I discussed the case with the residents and agree with the findings and plans of care as documented above. Maria Luisa Bains MD
[2025-03-08] MEDS: DEXTROSE 5%-NS 1,000 ML 100 ML IV (20:23)
[2025-03-09] VITALS (8 sets, daily range): BP systolic 114–124; BP diastolic 73–82; PULSE 72–89; RESP 16–98; TEMP 36.8–37.4; O2SAT 95–99
[2025-03-09] MEDS: INSULIN LISPRO (AdmeLOG) 1 UNIT/0.01 ML UNIT SC (00:44)
[2025-03-09] MEDS: LORazepam 0.5 MG TABLET PO ×2 (00:44→17:39)
[2025-03-09] MEDS: chlordiazePOXIDE HCl 25 MG CAPSULE PO ×3 (05:15→22:21)
[2025-03-09 06:32] LABS: Basophils % (Auto) 1 % (0-2.5); Eosinophils % (Auto) 2 % (0-10); Hematocrit 23.2 % (41.0-53.0); Immature Granulocytes % (Auto) 1 % (0-0); Immature Granulocytes Auto 0.01 Thou/mm3 (0.00-0.00); Lymphocytes # (Auto) 0.6 Thou/mm3 (1.0-4.8); Lymphocytes % (Auto) 44 % (10-50); Mean Corpuscular HGB Conc 34.9 g/dl (31.0-37.0); Mean Corpuscular Hemoglobin 31.4 pg (25.0-35.0); Mean Corpuscular Volume 90 fL (80-100); Monocytes # (Auto) 0.1 Thou/mm3 (0.0-0.8); Monocytes % (Auto) 8 % (0-12); Neutrophils # (Auto) 0.6 Thou/mm3 (1.8-7.7); Neutrophils % (Auto) 45 % (37-80); Nucleated Red Blood Cell % 0 /100 WBC (0); RDW Standard Deviation 49.5 fL (35.1-43.9); Red Blood Count 2.58 Miln/mm3 (4.50-5.90)
[2025-03-09 06:36] LABS: White Blood Count 1.3 Thou/mm3 (3.8-10.6)
[2025-03-09 06:37] LABS: Hemoglobin 8.1 g/dL (13.5-16.0); INR 1.6 (0.9-1.3); Platelet Count 57 Thou/mm3 (140-440); Prothrombin Time 17.1 Seconds (9.0-12.2)
[2025-03-09 06:44] LABS: Magnesium 1.1 mg/dL (1.6-2.6); Phosphorous 2.3 mg/dL (2.4-5.1)
[2025-03-09 06:51] LABS: Slide Review Platelets confirmed
[2025-03-09] MEDS: PANTOPRAZOLE INJ 40 MG VIAL IVP ×2 (08:08→20:49)
[2025-03-09] MEDS: MORPHINE SULF INJ 10 MG/ML VIAL IVP (08:08)
[2025-03-09] MEDS: THIAMINE 100 MG TABLET PO ×2 (08:09→20:48)
[2025-03-09] MEDS: FOLIC ACID 1 MG TABLET PO ×2 (08:09→20:48)
[2025-03-09] MEDS: levETIRAcetam LIQD 500 MG/5 ML UDC PO ×2 (08:09→20:47)
[2025-03-09] MEDS: cefTRIAXone/D5w 1gm IV premix 1 GM/50 ML BAG IV (08:09)
[2025-03-09] MEDS: OCTREOTIDE ACET INJ 1,000 MCG in SODIUM CHLORIDE 0.9% 100 ML 5.1 MCG IV (11:28)
--- NOTE | 2025-03-09 12:29 | ESPR_ITS ---
Documentation for date of: 03/09/25 Subjective Subjective Interval history: Vitals and labs stable. Patient underwent EGD by Dr. Hawkins last night which showed 2+ varice requiring banding and gastritis with hemorrhage. Patient will need to complete 3 more days of octreotide. Patient to have CLD and then transition to PUD diet. Patient educated on importance of alcohol abstinence and how he can qualify to be on transplant list. Exam Vital Signs Temp Pulse Resp BP Pulse Ox O2 Del Method O2 Flow Rate 98.8 F 89 18 118/81 99 Room Air 3 03/09/25 12:00 03/09/25 12:00 03/09/25 12:03/09/25 12:03/09/25 12:00 03/09/25 12:03/09/25 12:00 Narrative Exam General: Awake. HEENT: Normocephalic, atraumatic, mucous membranes moist. Heart: Regular rate and rhythm, no murmurs. Lungs: Clear to auscultation with no wheezing or crackles. Abdomen: Soft, nondistended, noted tenderness in epigastric area and left lower quadrant, positive bowel sounds. ?No guarding or rebound tenderness. Neurologic: Alert and oriented x3, no gross neurological deficit, and patient able to move all 4 extremities. Extremities: No edema. Skin: No rash or ecchymoses. Objective Labs 03/10/25 05:42 03/08/25 05:35 Labs: Laboratory Results - last 24 hr 03/09/25 06:06 WBC 1.3 L RBC 2.58 L Hgb 8.1 L Hct 23.2 L MCV 90 MCH 31.4 MCHC 34.9 RDW Std Deviation 49.5 H Plt Count 57 L Neut % (Auto) 45 Lymph % (Auto) 44 [place] % (Auto) 8 Eos % (Auto) 2 Baso % (Auto) 1 Neut # (Auto) 0.6 L Lymph # (Auto) 0.6 L [place] # (Auto) 0.1 Eos # (Auto) 0.0 Baso # (Auto) 0.0 Immature Gran # (Auto) 0.01 H Absolute Nucleated RBC 0.00 Immature Gran % 1 H Nucleated RBC % 0 PT 17.1 H INR 1.6 H Phosphorus 2.3 L Magnesium 1.1 L Misc Test Result Platelets confirmed Quality Measures Quality Measures none Assessment & Plan Assessment Current Active Medications: Generic Name Dose Route Start Last Admin Trade Name Black PRN Reason Stop Dose Admin Acetaminophen 650 mg 03/07/25 05:17 Acetaminophen 325 Mg Tablet PO 04/06/25 05:16 Q6H PRN pain 1-3 and Fever >100.4 Hydrocodone Bitart/Acetaminophen 1 tab 03/07/25 05:17 03/07/25 13:22 Hydrocodone/Apap 5/325 Tablet PO 03/12/25 05:16 1 tab Q4HR PRN Administration PAIN SCALE 4-6 (Moderate Chlordiazepoxide HCl 25 mg 03/07/25 22:00 03/09/25 05:15 Chlordiazepoxide Hcl 25 Mg Capsule PO 03/12/25 21:59 25 mg Q8HR CHER Administration Dextrose 25 ml 03/09/25 00:27 Dextrose 50%-Water Inj 50 Ml Syringe IV 04/08/25 00:26 Q15MIN PRN BG 50-70 responsive npo pt Dextrose 50 ml 03/09/25 00:27 Dextrose 50%-Water Inj 50 Ml Syringe IV 04/08/25 00:26 Q15MIN PRN BG <50 OR BG <70 & pt unresponsive Folic Acid 1 mg 03/07/25 09:00 03/09/25 08:09 Folic Acid 1 Mg Tablet PO 03/12/25 08:59 1 mg BID CHER Administration Glucagon 1 mg 03/09/25 00:27 Glucagon Inj 1 Mg Vial IM Q15MIN PRN BG <70, and no IV access Octreotide Acetate 1,000 mcg/ 102 mls @ 5.1 mls/hr 03/07/25 13:27 03/09/25 11:28 Sodium Chloride IV 03/12/25 13:27 50 mcg/hr .Q20H CHER 5.1 mls/hr Administration Protocol 50 MCG/HR Ceftriaxone Sodium/Dextrose 1 gm in 50 mls @ 100 mls/hr 03/07/25 14:03 03/09/25 08:09 Rocephin/D5w 1gm Iv Premix IV 03/14/25 14:02 100 mls/hr QDAY CHER Administration Insulin Human Lispro 0 unit 03/09/25 00:30 03/09/25 05:20 Insulin Lispro (Admelog) 1 Unit/0.01 Ml Unit SC 04/08/25 00:29 Not Given Q6HR CHER Protocol Levetiracetam 500 mg 03/07/25 09:00 03/09/25 08:09 Levetiracetam Liqd 500 Mg/5 Ml Udc PO 04/06/25 08:59 500 mg BID CHER Administration Lorazepam 0.5 mg 03/07/25 05:17 03/09/25 00:44 Lorazepam 0.5 Mg Tablet PO 03/12/25 05:16 0.5 mg Q4HR PRN Administration CIWA Score 2-6 Lorazepam 1 mg 03/07/25 05:17 03/07/25 13:22 Lorazepam 0.5 Mg Tablet PO 03/12/25 05:16 1 mg Q4HR PRN Administration CIWA SCORE 7-11 Lorazepam 2 mg 03/07/25 05:17 Lorazepam 0.5 Mg Tablet PO 03/12/25 05:16 Q4HR PRN CIWA SCORE 12-15 Morphine Sulfate 1 mg 03/07/25 05:17 03/09/25 08:08 Morphine Sulf Inj 10 Mg/Ml Vial IVP 03/12/25 05:16 1 mg Q2H PRN Administration PAIN SCALE 7-10 (Severe Ondansetron HCl 4 mg 03/07/25 05:17 03/07/25 17:09 Ondansetron Inj 2 Mg/Ml Inj 2 Ml IVP 04/06/25 05:16 4 mg Q6H PRN Administration NAUSEA OR VOMITING Protocol Pantoprazole Sodium 40 mg 03/07/25 21:00 03/09/25 08:08 Pantoprazole Inj 40 Mg Vial IVP 04/06/25 20:59 40 mg BID CHER Administration Thiamine HCl 100 mg 03/07/25 09:00 03/09/25 08:09 Thiamine 100 Mg Tablet PO 03/12/25 08:59 100 mg BID CHER Administration Plan 39-year-old male with past medical history of alcohol abuse disorder, alcohol withdrawal related seizures, alcoholic cirrhosis, GERD, and previous pancreatitis was admitted to the hospital on 03/07/2025 for acute pancreatitis, possible GI bleed in the setting of black starry stools, and possible alcohol withdrawal. # Pancytopenia # Likely secondary to alcohol abuse combined with underlying splenic sequestration - WBC is 1.3, hemoglobin 8.2, platelets 59 - Patient reported that he had history of pancytopenia for a while now -Peripheral smear did not show any significant abnormality Plan - Reticulocyte count is ordered - Vitamin B12, folate is ordered - Will continue iron supplements - Patient was placed on reverse isolation precautions #GI bleed, likely upper - varices vs Gastritis vs PUD #Melena #Coagulopathy #Alcoholic cirrhosis with splenomegaly #Hx of alcohol withdrawal related seizures Patient came in with complaints of abdominal pain after he started drinking today around 6 beers. He also mentioned that he had some black starry stools that started today. Patient has a history of pancreatitis in the past and stated that he was not drinking for the past 3 months, but he did have a relapse the day before the day of admission Last drink was before coming to the ED CIWA on assessment was 2 Patient alcohol levels were 405.5 Hemoglobin is stable at 10.4 Lipase was negative at 26 Abdomen/pelvis CT showed edema of pancreas concerning for acute pancreatitis, cirrhosis, significant splenomegaly, mild ascites INR is 1.4 EGD showed 2+ varice requiring banding and gastritis with hemorrhage Plan: IV fluids, DNS at 100 mL/h Pain control CIWA protocol ordered Started on Librium 25 mg 3 times daily Restarted patient's home Keppra 500 mg twice daily Started on pantoprazole 40 Mg IV push twice daily and octreotide drip in view of underlying cirrhosis and portal hypertension Ceftriaxone 1 g IV daily in view of suspected GI bleed in the setting of cirrhosis Dr. Hawkins is onboard, will appreciate his recommendations Disposition: Patient admitted for acute GI bleed, needs to complete 5 days of octreotide ggt Diet: CLD and then advance to PUD GI prophylaxis: protonix DVT prophylaxis: SCDs Code: Full This patient care was discussed with my attending Dr. Taina Borja MD PGY-2 Disclaimer: Minor errors in honing machine set up operator tool may be present since this note was dictated by speech recognition software. Attending Provider Attestation/Addendum I have discussed and was present for the essential components of the history, physical examination, diagnosis, and treatment plan with the resident. I agree with the patient's care as documented by the resident and amended herein by me. Moose Her DO. Although this document has been carefully reviewed, there may still be some phonetic and other typographical errors. These errors are purely grammatical due to imperfections in the software program and should not be construed in any way to compromise the substance of the patient's medical care during this visit.
--- NOTE | 2025-03-09 17:22 | ESPR_ITS ---
Documentation for date of: 03/09/25 Subjective Subjective Interval history: Patient evaluated Hemoglobin hematocrit 8.1 and 23.2 Exam Vital Signs Temp Pulse Resp BP Pulse Ox O2 Del Method O2 Flow Rate 98.9 F 86 18 114/73 99 Room Air 3 03/09/25 16:00 03/09/25 16:00 03/09/25 16:00 03/09/25 16:00 03/09/25 16:00 03/09/25 16:00 03/09/25 12:00 Objective Labs 03/09/25 06:06 03/08/25 05:35 Labs: Laboratory Results - last 24 hr 03/09/25 06:06 WBC 1.3 L RBC 2.58 L Hgb 8.1 L Hct 23.2 L MCV 90 MCH 31.4 MCHC 34.9 RDW Std Deviation 49.5 H Plt Count 57 L Neut % (Auto) 45 Lymph % (Auto) 44 [place] % (Auto) 8 Eos % (Auto) 2 Baso % (Auto) 1 Neut # (Auto) 0.6 L Lymph # (Auto) 0.6 L [place] # (Auto) 0.1 Eos # (Auto) 0.0 Baso # (Auto) 0.0 Immature Gran # (Auto) 0.01 H Absolute Nucleated RBC 0.00 Immature Gran % 1 H Nucleated RBC % 0 PT 17.1 H INR 1.6 H Phosphorus 2.3 L Magnesium 1.1 L Misc Test Result Platelets confirmed Impressions Impression: Esophageal varices status post band ligation Esophageal ulcer Continue octreotide infusion and advance diet Assessment & Plan A&P Narrative # melena most likely related to upper GI bleed secondary to hypertensive portal gastropathy possibly mucosal oozing of blood and may be esophageal variceal bleed # Chronic liver disease secondary to alcohol Plan Consent obtained for fiberoptic esophagogastroduodenoscopy with possible therapeutic intervention possible biopsy under intravenous moderate sedation scheduled for tomorrow morning N.p.o. midnight tonight Octreotide infusion at 50 mcg/h IV Protonix Serial CBC Advised complete abstinence from alcohol Thank you very much for the opportunity to participate in care of this patient # Time Spent With Patient Time: Total time spent is greater than 50% in coordination of care (as documented) at patient's floor/unit and/or counseling patient:
[2025-03-09 19:56] LABS: Folate > 24.00 ng/mL (>5.38); Vitamin B12 921 pg/mL (211-911)
[2025-03-10] VITALS (7 sets, daily range): BP systolic 110–126; BP diastolic 72–86; PULSE 80–95; RESP 16–98; TEMP 36.4–37.1; O2SAT 97–99
[2025-03-10] MEDS: OCTREOTIDE ACET INJ 1,000 MCG in SODIUM CHLORIDE 0.9% 100 ML 5.1 MCG IV (04:06)
[2025-03-10] MEDS: chlordiazePOXIDE HCl 25 MG CAPSULE PO (05:37)
[2025-03-10 06:13] LABS: Basophils % (Auto) 1 % (0-2.5); Eosinophils % (Auto) 2 % (0-10); Hematocrit 25.4 % (41.0-53.0); Immature Granulocytes % (Auto) 0 % (0-0); Lymphocytes # (Auto) 0.8 Thou/mm3 (1.0-4.8); Lymphocytes % (Auto) 44 % (10-50); Mean Corpuscular HGB Conc 34.3 g/dl (31.0-37.0); Mean Corpuscular Volume 90 fL (80-100); Monocytes # (Auto) 0.1 Thou/mm3 (0.0-0.8); Monocytes % (Auto) 8 % (0-12); Neutrophils # (Auto) 0.8 Thou/mm3 (1.8-7.7); Neutrophils % (Auto) 46 % (37-80); Nucleated Red Blood Cell % 0 /100 WBC (0); RDW Standard Deviation 50.1 fL (35.1-43.9); Red Blood Count 2.81 Miln/mm3 (4.50-5.90)
[2025-03-10 06:26] LABS: Hemoglobin 8.7 g/dL (13.5-16.0); INR 1.6 (0.9-1.3); Platelet Count 66 Thou/mm3 (140-440); Prothrombin Time 16.7 Seconds (9.0-12.2); White Blood Count 1.8 Thou/mm3 (3.8-10.6)
[2025-03-10 06:34] LABS: Magnesium 1.2 mg/dL (1.6-2.6); Phosphorous 2.6 mg/dL (2.4-5.1)
[2025-03-10 07:12] LABS: Slide Review Platelets confirmed
[2025-03-10] MEDS: levETIRAcetam LIQD 500 MG/5 ML UDC PO ×2 (08:59→21:11)
[2025-03-10] MEDS: Magnesium Sulfate 4 GM Ivpb 4 GM/50 ML BAG IV (08:59)
[2025-03-10] MEDS: cefTRIAXone/D5w 1gm IV premix 1 GM/50 ML BAG IV (08:59)
[2025-03-10] MEDS: PANTOPRAZOLE INJ 40 MG VIAL IVP (08:59)
[2025-03-10] MEDS: FOLIC ACID 1 MG TABLET PO ×2 (09:00→21:11)
[2025-03-10] MEDS: THIAMINE 100 MG TABLET PO ×2 (09:00→21:11)
[2025-03-10] MEDS: HYDROcodone/APAP 5/325 TABLET 1 TAB PO (10:37)
--- NOTE | 2025-03-10 11:36 | PC.SS ---
rounding note: Patient remains on a octreotide drip until Monday then d/c.
[2025-03-10] MEDS: INSULIN LISPRO (AdmeLOG) 1 UNIT/0.01 ML UNIT SC (12:01)
--- NOTE | 2025-03-10 13:33 | ESPR_ITS ---
Documentation for date of: 03/10/25 Subjective Subjective Interval history: Hemoglobin hematocrit 8.7 and 25.4 patient on octreotide infusion Patient status post dilatation of the esophageal varices Exam Vital Signs Temp Pulse Resp BP Pulse Ox O2 Del Method O2 Flow Rate 98.2 F 95 17 110/73 97 Room Air 3 03/10/25 12:00 03/10/25 12:00 03/10/25 12:00 03/10/25 12:00 03/10/25 12:00 03/10/25 12:00 03/09/25 12:00 Objective Labs 03/10/25 05:42 03/10/25 16:36 Labs: Laboratory Results - last 24 hr 03/08/25 03/10/25 05:35 05:42 WBC 1.8 L RBC 2.81 L Hgb 8.7 L Hct 25.4 L MCV 90 MCH 31.0 MCHC 34.3 RDW Std Deviation 50.1 H Plt Count 66 L Neut % (Auto) 46 Lymph % (Auto) 44 [place] % (Auto) 8 Eos % (Auto) 2 Baso % (Auto) 1 Neut # (Auto) 0.8 L Lymph # (Auto) 0.8 L [place] # (Auto) 0.1 Eos # (Auto) 0.0 Baso # (Auto) 0.0 Immature Gran # (Auto) 0.00 Absolute Nucleated RBC 0.00 Immature Gran % 0 Nucleated RBC % 0 PT 16.7 H INR 1.6 H Phosphorus 2.6 Magnesium 1.2 L Vitamin B12 921 H Folate > 24.00 Misc Test Result Platelets confirmed Impressions Impression: # Esophageal variceal bleeding requiring band ligation # Acute posthemorrhagic anemia Continue octreotide infusion Assessment & Plan A&P Narrative # melena most likely related to upper GI bleed secondary to hypertensive portal gastropathy possibly mucosal oozing of blood and may be esophageal variceal bleed # Chronic liver disease secondary to alcohol Plan Consent obtained for fiberoptic esophagogastroduodenoscopy with possible therapeutic intervention possible biopsy under intravenous moderate sedation scheduled for tomorrow morning N.p.o. midnight tonight Octreotide infusion at 50 mcg/h IV Protonix Serial CBC Advised complete abstinence from alcohol Thank you very much for the opportunity to participate in care of this patient # Time Spent With Patient Time: Total time spent is greater than 50% in coordination of care (as documented) at patient's floor/unit and/or counseling patient:
--- NOTE | 2025-03-10 15:01 | ESPR_ITS ---
Documentation for date of: 03/10/25 Subjective Subjective Interval history: Patient is seen and examined at bedside No acute overnight events. Still complaining of mild abdominal pain Endorsed that he is having appointment next week with youth support worker in [place] for cirrhosis, planning for liver transplant Vitals are stable Noted pancytopenia. Also noted to have low magnesium, 4 g of IV magnesium is given Will continue octreotide drip for 2 more days Exam Vital Signs Temp Pulse Resp BP Pulse Ox O2 Del Method O2 Flow Rate 98.2 F 95 17 110/73 97 Room Air 3 03/10/25 12:00 03/10/25 12:00 03/10/25 12:00 03/10/25 12:00 03/10/25 12:00 03/10/25 12:03/09/25 12:00 Narrative Exam General: Awake. HEENT: Normocephalic, atraumatic, mucous membranes moist. Heart: Regular rate and rhythm, no murmurs. Lungs: Clear to auscultation with no wheezing or crackles. Abdomen: Soft, nondistended, noted tenderness in epigastric area and left upper quadrant, positive bowel sounds. ?No guarding or rebound tenderness. Neurologic: Alert and oriented x3, no gross neurological deficit, and patient able to move all 4 extremities. Extremities: No edema. Skin: No rash or ecchymoses. Objective Labs 03/10/25 05:42 03/08/25 05:35 Labs: Laboratory Results - last 24 hr 03/08/25 03/10/25 05:35 05:42 WBC 1.8 L RBC 2.81 L Hgb 8.7 L Hct 25.4 L MCV 90 MCH 31.0 MCHC 34.3 RDW Std Deviation 50.1 H Plt Count 66 L Neut % (Auto) 46 Lymph % (Auto) 44 [place] % (Auto) 8 Eos % (Auto) 2 Baso % (Auto) 1 Neut # (Auto) 0.8 L Lymph # (Auto) 0.8 L [place] # (Auto) 0.1 Eos # (Auto) 0.0 Baso # (Auto) 0.0 Immature Gran # (Auto) 0.00 Absolute Nucleated RBC 0.00 Immature Gran % 0 Nucleated RBC % 0 PT 16.7 H INR 1.6 H Phosphorus 2.6 Magnesium 1.2 L Vitamin B12 921 H Folate > 24.00 Misc Test Result Platelets confirmed Quality Measures Quality Measures none Assessment & Plan Assessment Current Active Medications: Generic Name Dose Route Start Last Admin Trade Name Freq PRN Reason Stop Dose Admin Acetaminophen 650 mg 03/07/25 05:17 Acetaminophen 325 Mg Tablet PO 04/06/25 05:16 Q6H PRN pain 1-3 and Fever >100.4 Hydrocodone Bitart/Acetaminophen 1 tab 03/07/25 05:17 03/10/25 10:37 Hydrocodone/Apap 5/325 Tablet PO 03/12/25 05:16 1 tab Q4HR PRN Administration PAIN SCALE 4-6 (Moderate Chlordiazepoxide HCl 25 mg 03/07/25 22:00 03/10/25 05:37 Chlordiazepoxide Hcl 25 Mg Capsule PO 03/12/25 21:59 25 mg Q8HR CHER Administration Dextrose 25 ml 03/09/25 00:27 Dextrose 50%-Water Inj 50 Ml Syringe IV 04/08/25 00:26 Q15MIN PRN BG 50-70 responsive npo pt Dextrose 50 ml 03/09/25 00:27 Dextrose 50%-Water Inj 50 Ml Syringe IV 04/08/25 00:26 Q15MIN PRN BG <50 OR BG <70 & pt unresponsive Folic Acid 1 mg 03/07/25 09:00 03/10/25 09:00 Folic Acid 1 Mg Tablet PO 03/12/25 08:59 1 mg BID CHER Administration Glucagon 1 mg 03/09/25 00:27 Glucagon Inj 1 Mg Vial IM Q15MIN PRN BG <70, and no IV access Octreotide Acetate 1,000 mcg/ 102 mls @ 5.1 mls/hr 03/07/25 13:27 03/10/25 04:06 Sodium Chloride IV 03/12/25 13:27 50 mcg/hr .Q20H CHER 5.1 mls/hr Administration Protocol 50 MCG/HR Ceftriaxone Sodium/Dextrose 1 gm in 50 mls @ 100 mls/hr 03/07/25 14:03 03/10/25 08:59 Rocephin/D5w 1gm Iv Premix IV 03/14/25 14:02 100 mls/hr QDAY CHER Administration Insulin Human Lispro 0 unit 03/09/25 00:30 03/10/25 12:01 Insulin Lispro (Admelog) 1 Unit/0.01 Ml Unit SC 04/08/25 00:29 1 unit Q6HR CHER Administration Protocol Levetiracetam 500 mg 03/07/25 09:00 03/10/25 08:59 Levetiracetam Liqd 500 Mg/5 Ml Udc PO 04/06/25 08:59 500 mg BID CHER Administration Lorazepam 0.5 mg 03/07/25 05:17 03/09/25 17:39 Lorazepam 0.5 Mg Tablet PO 03/12/25 05:16 0.5 mg Q4HR PRN Administration CIWA Score 2-6 Lorazepam 1 mg 03/07/25 05:17 03/07/25 13:22 Lorazepam 0.5 Mg Tablet PO 03/12/25 05:16 1 mg Q4HR PRN Administration CIWA SCORE 7-11 Lorazepam 2 mg 03/07/25 05:17 Lorazepam 0.5 Mg Tablet PO 03/12/25 05:16 Q4HR PRN CIWA SCORE 12-15 Morphine Sulfate 1 mg 03/07/25 05:17 03/09/25 08:08 Morphine Sulf Inj 10 Mg/Ml Vial IVP 03/12/25 05:16 1 mg Q2H PRN Administration PAIN SCALE 7-10 (Severe Ondansetron HCl 4 mg 03/07/25 05:17 03/07/25 17:09 Ondansetron Inj 2 Mg/Ml Inj 2 Ml IVP 04/06/25 05:16 4 mg Q6H PRN Administration NAUSEA OR VOMITING Protocol Pantoprazole Sodium 40 mg 03/07/25 21:00 03/10/25 08:59 Pantoprazole Inj 40 Mg Vial IVP 04/06/25 20:59 40 mg BID CHER Administration Thiamine HCl 100 mg 03/07/25 09:00 03/10/25 09:00 Thiamine 100 Mg Tablet PO 03/12/25 08:59 100 mg BID CHER Administration Plan 39-year-old male with past medical history of alcohol abuse disorder, alcohol withdrawal related seizures, alcoholic cirrhosis, GERD, and previous pancreatitis was admitted to the hospital on 03/07/2025 for acute pancreatitis, possible GI bleed in the setting of black starry stools, and possible alcohol withdrawal. # Pancytopenia # Likely secondary to alcohol abuse combined with underlying splenic sequestration - WBC is 1.8, hemoglobin 8.7, platelets 66 - Patient reported that he had history of pancytopenia for a while now - Peripheral smear did not show any significant abnormality - Reticulocyte count is 2.5, high suggesting appropriate bone marrow response to pancytopenia, likely due to splenic sequestration - Vitamin B12 - 922, folate >24 Plan - Will continue iron supplements - Patient was placed on reverse isolation precautions in view of moderate absolute neutropenia #GI bleed, upper - Grade II Esophageal varices s/p Banding, Gastritis and Esophageal ulcer #Melena #Coagulopathy #Alcoholic cirrhosis with splenomegaly #Hx of alcohol withdrawal related seizures Patient came in with complaints of abdominal pain after he started drinking today around 6 beers. He also mentioned that he had some black starry stools that started today. Patient has a history of pancreatitis in the past and stated that he was not drinking for the past 3 months, but he did have a relapse the day before the day of admission Last drink was before coming to the ED CIWA on assessment was 2 Patient alcohol levels were 405.5 Hemoglobin is stable at 10.4 Lipase was negative at 26 Abdomen/pelvis CT showed edema of pancreas concerning for acute pancreatitis, cirrhosis, significant splenomegaly, mild ascites INR is 1.4 EGD showed 2+ varices requiring banding, 2 and gastritis with hemorrhage Plan: Pain control CIWA protocol ordered Started on Librium 25 mg 3 times daily, downtitrated to 10mg thrice daily Restarted patient's home Keppra 500 mg twice daily Started on pantoprazole 40 Mg IV push twice daily and octreotide drip (03/07 - in view of underlying cirrhosis and portal hypertension Ceftriaxone 1 g IV daily in view of suspected GI bleed in the setting of cirrhosis Dr. Hawkins is onboard, will appreciate his recommendations Disposition: Patient admitted for acute GI bleed, needs to complete 5 days of octreotide ggt Diet: CLD and then advance to PUD GI prophylaxis: protonix DVT prophylaxis: SCDs Code: Full This patient care was discussed with my attending Dr. Taina Richter, PGY1 Attending Provider Attestation/Addendum I have discussed and was present for the essential components of the history, physical examination, diagnosis, and treatment plan with the resident. I agree with the patient's care as documented by the resident and amended herein by me. Moose Her DO. Patient seen and evaluated this AM. Will need 2 more days of octreotide, stable, does have an appointment with a hepatobiliary specialist in [place] next week apparently which she can discuss transplant options at that time. Although this document has been carefully reviewed, there may still be some phonetic and other typographical errors. These errors are purely grammatical due to imperfections in the software program and should not be construed in any way to compromise the substance of the patient's medical care during this visit.
[2025-03-10 17:22] LABS: Anion Gap 9 (7-16); BUN/Creatinine Ratio 7 Ratio (12-20); Blood Urea Nitrogen < 5 mg/dL (9-23); Calcium 7.9 mg/dL (8.3-10.6); Carbon Dioxide 24.9 mMol/L (20.0-31.0); Chloride 103 mMol/L (98-107); Creatinine (Component) 0.7 mg/dL (0.6-1.3); Estimated Creatinine Clearance 125.3 mL/min (>60); Glucose 141 mg/dL (74-106); Osmolality,Calculated 273 (275-295); Potassium 3.6 mMol/L (3.4-5.1); Sodium 137 mMol/L (136-145); eGFR > 60 See Note
[2025-03-10] MEDS: chlordiazePOXIDE HCl 10 MG CAPSULE PO (21:11)
[2025-03-11] VITALS: BP 114/75; PULSE 87; RESP 16; TEMP 36.8; O2SAT 98
[2025-03-11] MEDS: OCTREOTIDE ACET INJ 1,000 MCG in SODIUM CHLORIDE 0.9% 100 ML 5.1 MCG IV ×2 (00:28→20:29)
[2025-03-11 04:00] VITALS: BP 112/73; PULSE 81; RESP 18; TEMP 36.5; O2SAT 95
[2025-03-11 06:04] LABS: Basophils % (Auto) 1 % (0-2.5); Eosinophils % (Auto) 1 % (0-10); Hematocrit 23.6 % (41.0-53.0); Immature Granulocytes % (Auto) 1 % (0-0); Immature Granulocytes Auto 0.01 Thou/mm3 (0.00-0.00); Lymphocytes # (Auto) 0.7 Thou/mm3 (1.0-4.8); Lymphocytes % (Auto) 40 % (10-50); Mean Corpuscular HGB Conc 35.2 g/dl (31.0-37.0); Mean Corpuscular Hemoglobin 31.4 pg (25.0-35.0); Mean Corpuscular Volume 89 fL (80-100); Monocytes # (Auto) 0.2 Thou/mm3 (0.0-0.8); Monocytes % (Auto) 9 % (0-12); Neutrophils # (Auto) 0.8 Thou/mm3 (1.8-7.7); Neutrophils % (Auto) 49 % (37-80); Nucleated Red Blood Cell % 0 /100 WBC (0); RDW Standard Deviation 50.5 fL (35.1-43.9); Red Blood Count 2.64 Miln/mm3 (4.50-5.90)
[2025-03-11] MEDS: chlordiazePOXIDE HCl 10 MG CAPSULE PO ×3 (06:08→20:29)
[2025-03-11 06:15] LABS: Hemoglobin 8.3 g/dL (13.5-16.0); Platelet Count 60 Thou/mm3 (140-440); White Blood Count 1.7 Thou/mm3 (3.8-10.6)
[2025-03-11 06:38] LABS: Alanine Aminotransferase 7 U/L (10-49); Albumin, Serum 2.8 gm/dL (3.5-5.0); Albumin/Globulin Ratio 0.7 (1.2-2.2); Alkaline Phosphatase 124 U/L (46-116); Anion Gap 11 (7-16); Aspartate Amino Transferase 27 U/L (0-34); BUN/Creatinine Ratio 8 Ratio (12-20); Bilirubin,Total 0.9 mg/dL (0.3-1.2); Blood Urea Nitrogen < 5 mg/dL (9-23); Carbon Dioxide 24.2 mMol/L (20.0-31.0); Chloride 104 mMol/L (98-107); Creatinine (Component) 0.6 mg/dL (0.6-1.3); Estimated Creatinine Clearance 146.2 mL/min (>60); Globulin 4.1 gm/dL (2.3-3.5); Glucose 108 mg/dL (74-106); Osmolality,Calculated 275 (275-295); Potassium 3.8 mMol/L (3.4-5.1); Sodium 139 mMol/L (136-145); Total Protein 6.9 gm/dL (5.7-8.2); eGFR > 60 See Note
[2025-03-11 07:56] LABS: Slide Review Platelets confirmed
[2025-03-11 08:00] VITALS: BP 120/77; PULSE 79; RESP 18; TEMP 36.6; O2SAT 98
[2025-03-11] MEDS: PANTOPRAZOLE 40 MG TABLET PO (09:30)
[2025-03-11] MEDS: THIAMINE 100 MG TABLET PO ×2 (09:30→20:29)
[2025-03-11] MEDS: cefTRIAXone/D5w 1gm IV premix 1 GM/50 ML BAG IV (09:30)
[2025-03-11] MEDS: levETIRAcetam LIQD 500 MG/5 ML UDC PO ×2 (09:30→20:29)
[2025-03-11] MEDS: FOLIC ACID 1 MG TABLET PO ×2 (09:30→20:29)
--- NOTE | 2025-03-11 11:38 | ESPR_ITS ---
<Statement entered by Sarkis Borja MD - 03/12/25 00:25> I discussed with and supervised the corporate intern physician involved in the care of this patient. Patient assessment and plan was discussed with entire medicine team, including my attending. I agree with the assessment and plan as documented by corporate intern doctor. Patient care was discussed with my attending physician Dr. Taina Borja, PGY-2 Documentation for date of: 03/11/25 Subjective Subjective Interval history: Patient is seen and examined at bedside No acute overnight events and denies any other complaints Vitals are stable. Patient will complete his octreotide infusion tomorrow, planning to discharge tomorrow Exam Vital Signs Temp Pulse Resp BP Pulse Ox O2 Del Method O2 Flow Rate 97.8 F 79 18 120/77 98 Room Air 3 03/11/25 08:00 03/11/25 08:00 03/11/25 08:00 03/11/25 08:00 03/11/25 08:00 03/11/25 08:00 03/09/25 12:00 Narrative Exam General: Awake. HEENT: Normocephalic, atraumatic, mucous membranes moist. Heart: Regular rate and rhythm, no murmurs. Lungs: Clear to auscultation with no wheezing or crackles. Abdomen: Soft, nondistended, noted tenderness in epigastric area and left upper quadrant, positive bowel sounds. ?No guarding or rebound tenderness. Neurologic: Alert and oriented x3, no gross neurological deficit, and patient able to move all 4 extremities. Extremities: No edema. Skin: No rash or ecchymoses. Objective Labs 03/11/25 05:38 03/11/25 05:38 Labs: Laboratory Results - last 24 hr 03/10/25 03/11/25 16:36 05:38 WBC 1.7 L RBC 2.64 L Hgb 8.3 L Hct 23.6 L MCV 89 MCH 31.4 MCHC 35.2 RDW Std Deviation 50.5 H Plt Count 60 L Neut % (Auto) 49 Lymph % (Auto) 40 [place] % (Auto) 9 Eos % (Auto) 1 Baso % (Auto) 1 Neut # (Auto) 0.8 L Lymph # (Auto) 0.[address] [place] # (Auto) 0.2 Eos # (Auto) 0.0 Baso # (Auto) 0.0 Immature Gran # (Auto) 0.01 H Absolute Nucleated RBC 0.00 Immature Gran % 1 H Nucleated RBC % 0 Sodium 137 139 Potassium 3.6 3.8 Chloride 103 104 Carbon Dioxide 24.9 24.2 Anion Gap 9 11 BUN < 5 L < 5 L Creatinine 0.7 0.6 Estim Creat Clear Calc 125.3 146.2 eGFR > 60 > 60 BUN/Creatinine Ratio 7 L 8 L Glucose 141 H 108 H Calculated Osmolality 273 L 275 Calcium 7.9 L 8.0 L Corrected Calcium 9.0 Total Bilirubin 0.9 AST 27 ALT 7 L Alkaline Phosphatase 124 H Total Protein 6.9 Albumin 2.8 L Globulin 4.1 H Albumin/Globulin Ratio 0.7 L Misc Test Result Platelets confirmed Quality Measures Quality Measures none Assessment & Plan Assessment Current Active Medications: Generic Name Dose Route Start Last Admin Trade Name Freq PRN Reason Stop Dose Admin Acetaminophen 650 mg 03/07/25 05:17 Acetaminophen 325 Mg Tablet PO 04/06/25 05:16 Q6H PRN pain 1-3 and Fever >100.4 Hydrocodone Bitart/Acetaminophen 1 tab 03/07/25 05:17 03/10/25 10:37 Hydrocodone/Apap 5/325 Tablet PO 03/12/25 05:16 1 tab Q4HR PRN Administration PAIN SCALE 4-6 (Moderate Chlordiazepoxide HCl 10 mg 03/10/25 22:00 03/11/25 06:08 Chlordiazepoxide Hcl 10 Mg Capsule PO 03/15/25 21:59 10 mg Q8HR CHER Administration Dextrose 25 ml 03/09/25 00:27 Dextrose 50%-Water Inj 50 Ml Syringe IV 04/08/25 00:26 Q15MIN PRN BG 50-70 responsive npo pt Dextrose 50 ml 03/09/25 00:27 Dextrose 50%-Water Inj 50 Ml Syringe IV 04/08/25 00:26 Q15MIN PRN BG <50 OR BG <70 & pt unresponsive Folic Acid 1 mg 03/07/25 09:00 03/11/25 09:30 Folic Acid 1 Mg Tablet PO 03/12/25 08:59 1 mg BID CHER Administration Glucagon 1 mg 03/09/25 00:27 Glucagon Inj 1 Mg Vial IM Q15MIN PRN BG <70, and no IV access Octreotide Acetate 1,000 mcg/ 102 mls @ 5.1 mls/hr 03/07/25 13:27 03/11/25 00:28 Sodium Chloride IV 03/12/25 13:27 50 mcg/hr .Q20H CHER 5.1 mls/hr Administration Protocol 50 MCG/HR Ceftriaxone Sodium/Dextrose 1 gm in 50 mls @ 100 mls/hr 03/07/25 14:03 03/11/25 09:30 Rocephin/D5w 1gm Iv Premix IV 03/14/25 14:02 100 mls/hr QDAY CHER Administration Insulin Human Lispro 0 unit 03/09/25 00:30 03/11/25 06:07 Insulin Lispro (Admelog) 1 Unit/0.01 Ml Unit SC 04/08/25 00:29 Not Given Q6HR CHER Protocol Levetiracetam 500 mg 03/07/25 09:00 03/11/25 09:30 Levetiracetam Liqd 500 Mg/5 Ml Udc PO 04/06/25 08:59 500 mg BID CHER Administration Lorazepam 0.5 mg 03/07/25 05:17 03/09/25 17:39 Lorazepam 0.5 Mg Tablet PO 03/12/25 05:16 0.5 mg Q4HR PRN Administration CIWA Score 2-6 Lorazepam 1 mg 03/07/25 05:17 03/07/25 13:22 Lorazepam 0.5 Mg Tablet PO 03/12/25 05:16 1 mg Q4HR PRN Administration CIWA SCORE 7-11 Lorazepam 2 mg 03/07/25 05:17 Lorazepam 0.5 Mg Tablet PO 03/12/25 05:16 Q4HR PRN CIWA SCORE 12-15 Morphine Sulfate 1 mg 03/07/25 05:17 03/09/25 08:08 Morphine Sulf Inj 10 Mg/Ml Vial IVP 03/12/25 05:16 1 mg Q2H PRN Administration PAIN SCALE 7-10 (Severe Ondansetron HCl 4 mg 03/07/25 05:17 03/07/25 17:09 Ondansetron Inj 2 Mg/Ml Inj 2 Ml IVP 04/06/25 05:16 4 mg Q6H PRN Administration NAUSEA OR VOMITING Protocol Pantoprazole Sodium 40 mg 03/11/25 09:00 03/11/25 09:30 Pantoprazole 40 Mg Tablet PO 04/10/25 08:59 40 mg QDAY CHER Administration Thiamine HCl 100 mg 03/07/25 09:00 03/11/25 09:30 Thiamine 100 Mg Tablet PO 03/12/25 08:59 100 mg BID CHER Administration Plan 39-year-old male with past medical history of alcohol abuse disorder, alcohol withdrawal related seizures, alcoholic cirrhosis, GERD, and previous pancreatitis was admitted to the hospital on 03/07/2025 for acute pancreatitis, possible GI bleed in the setting of black starry stools, and possible alcohol withdrawal. # Pancytopenia # Likely secondary to alcohol abuse combined with underlying splenic sequestration - WBC is 1.8, hemoglobin 8.7, platelets 66 - Patient reported that he had history of pancytopenia for a while now - Peripheral smear did not show any significant abnormality - Reticulocyte count is 2.5, high suggesting appropriate bone marrow response to pancytopenia, likely due to splenic sequestration - Vitamin B12 - 922, folate >24 Plan - Will continue iron supplements - Patient was placed on reverse isolation precautions in view of moderate absolute neutropenia #GI bleed, upper - Grade II Esophageal varices s/p Banding, Gastritis and Esophageal ulcer #Melena #Coagulopathy #Alcoholic cirrhosis with splenomegaly #Hx of alcohol withdrawal related seizures Patient came in with complaints of abdominal pain after he started drinking today around 6 beers. He also mentioned that he had some black starry stools that started today. Patient has a history of pancreatitis in the past and stated that he was not drinking for the past 3 months, but he did have a relapse the day before the day of admission Last drink was before coming to the ED CIWA on assessment was 2 Patient alcohol levels were 405.5 Hemoglobin is stable at 10.4 Lipase was negative at 26 Abdomen/pelvis CT showed edema of pancreas concerning for acute pancreatitis, cirrhosis, significant splenomegaly, mild ascites INR is 1.4 EGD showed 2+ varices requiring banding, 2 and gastritis with hemorrhage Plan: Pain control CIWA protocol ordered Started on Librium 25 mg 3 times daily, downtitrated to 10mg twice daily Restarted patient's home Keppra 500 mg twice daily Started on pantoprazole 40 Mg IV push twice daily and octreotide drip (03/07 - 03/12) in view of underlying cirrhosis and portal hypertension Ceftriaxone 1 g IV daily in view of suspected GI bleed in the setting of cirrhosis Dr. Hawkins is onboard, will appreciate his recommendations Disposition: Patient admitted for acute GI bleed, needs to complete 5 days of octreotide ggt Diet: PUD GI prophylaxis: protonix DVT prophylaxis: SCDs Code: Full This patient care was discussed with my attending Dr. Her and senior resident Dr. Huong Richter, PGY1 Attending Provider Attestation/Addendum I have discussed and was present for the essential components of the history, physical examination, diagnosis, and treatment plan with the resident. I agree with the patient's care as documented by the resident and amended herein by me. Moose Her, DO. Patient can be discharged home tomorrow 03/12 after octreotide drip completes. No other complications otherwise, patient understands, will follow-up outpatient with hepatobiliary specialist next week. Although this document has been carefully reviewed, there may still be some phonetic and other typographical errors. These errors are purely grammatical due to imperfections in the software program and should not be construed in any way to compromise the substance of the patient's medical care during this visit.
[2025-03-11 12:00] VITALS: BP 105/68; PULSE 78; RESP 17; TEMP 36.6; O2SAT 94
[2025-03-11 16:00] VITALS: BP 108/70; PULSE 77; RESP 18; TEMP 36.6; O2SAT 95
--- NOTE | 2025-03-11 18:44 | ESPR_ITS ---
Documentation for date of: 03/11/25 Subjective Subjective Interval history: Patient evaluated hemoglobin hematocrit 8.3 and 23.6 On octreotide infusion status post band ligation of the esophageal varices Exam Vital Signs Temp Pulse Resp BP Pulse Ox O2 Del Method O2 Flow Rate 97.8 F 78 17 105/68 94 L Room Air 3 03/11/25 12:00 03/11/25 12:00 03/11/25 12:00 03/11/25 12:00 03/11/25 12:00 03/11/25 12:00 03/09/25 12:00 Objective Labs 03/11/25 05:38 03/11/25 05:38 Labs: Laboratory Results - last 24 hr 03/11/25 05:38 WBC 1.7 L RBC 2.64 L Hgb 8.3 L Hct 23.6 L MCV 89 MCH 31.4 MCHC 35.2 RDW Std Deviation 50.5 H Plt Count 60 L Neut % (Auto) 49 Lymph % (Auto) 40 [place] % (Auto) 9 Eos % (Auto) 1 Baso % (Auto) 1 Neut # (Auto) 0.8 L Lymph # (Auto) 0.7 L [place] # (Auto) 0.2 Eos # (Auto) 0.0 Baso # (Auto) 0.0 Immature Gran # (Auto) 0.01 H Absolute Nucleated RBC 0.00 Immature Gran % 1 H Nucleated RBC % 0 Sodium 139 Potassium 3.8 Chloride 104 Carbon Dioxide 24.2 Anion Gap 11 BUN < 5 L Creatinine 0.6 Estim Creat Clear Calc 146.2 eGFR > 60 BUN/Creatinine Ratio 8 L Glucose 108 H Calculated Osmolality 275 Calcium 8.0 L Corrected Calcium 9.0 Total Bilirubin 0.9 AST 27 ALT 7 L Alkaline Phosphatase 124 H Total Protein 6.9 Albumin 2.8 L Globulin 4.1 H Albumin/Globulin Ratio 0.7 L Misc Test Result Platelets confirmed Impressions Impression: Acute posthemorrhagic anemia Esophageal variceal bleeding requiring band ligation Continue octreotide infusion and finish 5 days of infusion Assessment & Plan A&P Narrative # melena most likely related to upper GI bleed secondary to hypertensive portal gastropathy possibly mucosal oozing of blood and may be esophageal variceal bleed # Chronic liver disease secondary to alcohol Plan Consent obtained for fiberoptic esophagogastroduodenoscopy with possible therapeutic intervention possible biopsy under intravenous moderate sedation scheduled for tomorrow morning N.p.o. midnight tonight Octreotide infusion at 50 mcg/h IV Protonix Serial CBC Advised complete abstinence from alcohol Thank you very much for the opportunity to participate in care of this patient # Time Spent With Patient Time: Total time spent is greater than 50% in coordination of care (as documented) at patient's floor/unit and/or counseling patient:
[2025-03-11 20:00] VITALS: BP 114/86; PULSE 87; RESP 18; TEMP 36.3; O2SAT 100
[2025-03-12] VITALS: BP 124/90; PULSE 89; RESP 17; TEMP 36.2; O2SAT 99
[2025-03-12 04:00] VITALS: BP 107/81; PULSE 87; RESP 17; TEMP 36.5; O2SAT 98
[2025-03-12 08:00] VITALS: BP 99/65; PULSE 87; RESP 17; TEMP 36.5; O2SAT 98
[2025-03-12] MEDS: cefTRIAXone/D5w 1gm IV premix 1 GM/50 ML BAG IV (08:33)
[2025-03-12] MEDS: PANTOPRAZOLE 40 MG TABLET PO (08:34)
[2025-03-12] MEDS: levETIRAcetam LIQD 500 MG/5 ML UDC PO (08:34)
[2025-03-12] MEDS: chlordiazePOXIDE HCl 10 MG CAPSULE PO (08:34)
[2025-03-12 09:51] LABS: Basophils % (Auto) 1 % (0-2.5); Eosinophils % (Auto) 2 % (0-10); Hematocrit 25.2 % (41.0-53.0); Immature Granulocytes % (Auto) 0 % (0-0); Lymphocytes # (Auto) 0.6 Thou/mm3 (1.0-4.8); Lymphocytes % (Auto) 38 % (10-50); Mean Corpuscular HGB Conc 34.5 g/dl (31.0-37.0); Mean Corpuscular Hemoglobin 31.4 pg (25.0-35.0); Mean Corpuscular Volume 91 fL (80-100); Monocytes # (Auto) 0.2 Thou/mm3 (0.0-0.8); Monocytes % (Auto) 10 % (0-12); Neutrophils # (Auto) 0.7 Thou/mm3 (1.8-7.7); Neutrophils % (Auto) 49 % (37-80); Nucleated Red Blood Cell % 0 /100 WBC (0); RDW Standard Deviation 51.5 fL (35.1-43.9); Red Blood Count 2.77 Miln/mm3 (4.50-5.90)
[2025-03-12 10:00] LABS: Hemoglobin 8.7 g/dL (13.5-16.0); Platelet Count 63 Thou/mm3 (140-440); White Blood Count 1.5 Thou/mm3 (3.8-10.6)
[2025-03-12 10:16] LABS: Alanine Aminotransferase 7 U/L (10-49); Albumin, Serum 2.9 gm/dL (3.5-5.0); Albumin/Globulin Ratio 0.6 (1.2-2.2); Alkaline Phosphatase 127 U/L (46-116); Anion Gap 8 (7-16); Aspartate Amino Transferase 25 U/L (0-34); BUN/Creatinine Ratio 8 Ratio (12-20); Bilirubin,Total 0.9 mg/dL (0.3-1.2); Blood Urea Nitrogen < 5 mg/dL (9-23); Calcium 8.3 mg/dL (8.3-10.6); Calcium (Corrected) 9.2 mg/dL (8.5-10.1); Carbon Dioxide 24.2 mMol/L (20.0-31.0); Chloride 104 mMol/L (98-107); Creatinine (Component) 0.6 mg/dL (0.6-1.3); Estimated Creatinine Clearance 146.2 mL/min (>60); Globulin 4.5 gm/dL (2.3-3.5); Glucose 190 mg/dL (74-106); Osmolality,Calculated 274 (275-295); Potassium 3.6 mMol/L (3.4-5.1); Sodium 136 mMol/L (136-145); Total Protein 7.4 gm/dL (5.7-8.2); eGFR > 60 See Note
[2025-03-12 11:47] LABS: Slide Review Platelets confirmed
[2025-03-12 11:54] VITALS: BP 98/66; PULSE 84; RESP 17; TEMP 36.4; O2SAT 98
--- NOTE | 2025-03-12 12:52 | ESPR_ITS ---
Documentation for date of: 03/12/25 Subjective Subjective Interval history: Hemoglobin hematocrit stable okay to discharge patient home to be followed by the PCP Exam Vital Signs Temp Pulse Resp BP Pulse Ox O2 Del Method O2 Flow Rate 97.6 F 84 17 98/66 98 Room Air 3 03/12/25 11:54 03/12/25 11:54 03/12/25 11:54 03/12/25 11:54 03/12/25 11:54 03/12/25 11:54 03/09/25 12:00 Objective Labs 03/12/25 09:00 03/12/25 09:00 Labs: Laboratory Results - last 24 hr 03/12/25 09:00 WBC 1.5 L RBC 2.77 L Hgb 8.7 L Hct 25.2 L MCV 91 MCH 31.4 MCHC 34.5 RDW Std Deviation 51.5 H Plt Count 63 L Neut % (Auto) 49 Lymph % (Auto) 38 [place] % (Auto) 10 Eos % (Auto) 2 Baso % (Auto) 1 Neut # (Auto) 0.7 L Lymph # (Auto) 0.6 L [place] # (Auto) 0.2 Eos # (Auto) 0.0 Baso # (Auto) 0.0 Immature Gran # (Auto) 0.00 Absolute Nucleated RBC 0.00 Immature Gran % 0 Nucleated RBC % 0 Sodium 136 Potassium 3.6 Chloride 104 Carbon Dioxide 24.2 Anion Gap 8 BUN < 5 L Creatinine 0.6 Estim Creat Clear Calc 146.2 eGFR > 60 BUN/Creatinine Ratio 8 L Glucose 190 H D Calculated Osmolality 274 L Calcium 8.3 Corrected Calcium 9.2 Total Bilirubin 0.9 AST 25 ALT 7 L Alkaline Phosphatase 127 H Total Protein 7.4 Albumin 2.9 L Globulin 4.5 H Albumin/Globulin Ratio 0.6 L Misc Test Result Platelets confirmed Impressions Impression: Esophageal variceal bleeding status post band ligation patient completed 5 days of octreotide okay to discharge patient home Assessment & Plan A&P Narrative # melena most likely related to upper GI bleed secondary to hypertensive portal gastropathy possibly mucosal oozing of blood and may be esophageal variceal bleed # Chronic liver disease secondary to alcohol Plan Consent obtained for fiberoptic esophagogastroduodenoscopy with possible therapeutic intervention possible biopsy under intravenous moderate sedation scheduled for tomorrow morning N.p.o. midnight tonight Octreotide infusion at 50 mcg/h IV Protonix Serial CBC Advised complete abstinence from alcohol Thank you very much for the opportunity to participate in care of this patient # Time Spent With Patient Time: Total time spent is greater than 50% in coordination of care (as documented) at patient's floor/unit and/or counseling patient:
[2025-03-12 16:00] VITALS: BP 114/72; PULSE 82; RESP 17; TEMP 36.4; O2SAT 98
--- NOTE | 2025-03-12 17:16 | ESDS_ITS ---
<Statement entered by Sarkis Borja MD - 03/13/25 07:44> I discussed with and supervised the internet application developer physician involved in the care of this patient. Patient assessment and plan was discussed with entire medicine team, including my attending. I agree with the assessment and plan as documented by internet application developer doctor. Patient care was discussed with my attending physician Dr. Taina Borja, PGY-2 Planned Discharge Date 03/12/25 DS: Providers Provider Date of admission: 03/07/25 05:25 Primary care physician: VIRIDIANA Wilson Admitting Provider: Tyler Martinez MD Attending Provider on Admission: Guevara Her DO Consults: 03/07/25 10:49 Consult to Gastroenterology Routine Comment: DARK STOOLS Consulting Provider: Alona Hawkins Attending Provider on DC: Jared Richter MD Discharging Provider: Jared Richter MD DS: Diagnosis Problem List Completed Was Problem List Reviewed/Reconciled?: Yes Hospital Course Hospital Course Hospital course: 39-year-old male with past medical history of alcohol abuse disorder, alcohol withdrawal related seizures, alcoholic cirrhosis, GERD, and previous pancreatitis was admitted to the hospital on 03/07/2025 to come to the ED with complaints of abdominal pain and black stools and admitted for UGI Bleed 2/2 varices , cirrhosis and portal hypertension Hospital course: Vitals are stable except for tachycardia. Initial labs were relevant for elevated INR, transaminitis, and elevated alcohol levels. Abdomen/pelvis CT showed cirrhosis, significant splenomegaly, mild ascites, portal hypertension. Patient was started on pantoprazole and octreotide infusion. Dough Maker, Dr. hawkins was consulted and did UGI endoscopy that showed Esophageal ulcer, Grade II varices in the lower third of esophagus and underwent banding, noted diffuse severe inflammation with hemorrhage in stomach. Continued Octreotide for total duration of 5 days and treated with CIWA protocol and librium Patient is discharged to the home with following medications and recommendations -Follow-up with PCP within 1 week of discharge. If you do not have appointment, please follow-up with the [facility] with Dr. Richter. Call [phone] to make an appointment. -Follow up with Dough Maker and team in [place] for further management of liver disease and liver transplant if needed -Start Propranolol 10mg twice daily -Stop Hydralazine, terbinafine and penicilin -Continue rest of the home medications as prescribed -Recommended to avoid alcohol and spicy foods -Return to ED if symptoms persist or return # Pancytopenia # Likely secondary to alcohol abuse combined with underlying splenic sequestration #GI bleed, upper - Grade II Esophageal varices s/p Banding, Gastritis and Esophageal ulcer #Melena #Coagulopathy #Alcoholic cirrhosis with splenomegaly #Hx of alcohol withdrawal related seizures Patient plan of care was discussed with the attending physician, Dr. Her and senior resident Dr. Huong Richter, PGY1 Time Spent with Patient Time attestation: Total time spent providing and/or coordinating discharge services: Time spent: Greater than 30 minutes Exam Vital Signs Temp Pulse Resp BP Pulse Ox O2 Del Method O2 Flow Rate 97.6 F 82 17 114/72 98 Room Air 3 03/12/25 16:03/12/25 16:03/12/25 16:03/12/25 16:03/12/25 16:03/12/25 16:03/09/25 12:00 Narrative Exam General: Awake. HEENT: Normocephalic, atraumatic, mucous membranes moist. Heart: Regular rate and rhythm, no murmurs. Lungs: Clear to auscultation with no wheezing or crackles. Abdomen: Soft, nondistended, noted tenderness in epigastric area and left upper quadrant, positive bowel sounds. ?No guarding or rebound tenderness. Neurologic: Alert and oriented x3, no gross neurological deficit, and patient able to move all 4 extremities. Extremities: No edema. Skin: No rash or ecchymoses. Discharge Plan Plan Patient Disposition: HOME (Self Care) Patient condition on transfer: Stable Care Plan Goals: -Follow-up with PCP within 1 week of discharge. If you do not have appointment, please follow-up with the [facility] with Dr. Richter. Call [phone] to make an appointment. -Follow up with Dough Maker and team in [place] for further management of liver disease and liver transplant if needed -Start Propranolol 10mg twice daily -Stop Hydralazine, terbinafine and penicilin -Continue rest of the home medications as prescribed -Recommended to avoid alcohol and spicy foods -Return to ED if symptoms persist or return Prescriptions/Referrals Prescriptions/Med Rec: New propranolol 10 mg tablet 10 mg PO BID Qty: 60 1RF Rx Instructions: Take 1 tablet twice daily Continued folic acid 1 mg Tablet 1 mg PO BID 30 Days Qty: 30 0RF ferrous sulfate 325 mg (65 mg iron) tablet 325 mg PO EVERYOTHERDAY Patient Comments: 1 TABLET ORALLY THREE TIMES A WEEK 30 DAYS levetiracetam 500 mg tablet 500 mg PO Q12H Patient Comments: TAKE 1 TABLET BY MOUTH EVERY 12 HOURS FOR 90 DAYS pantoprazole 40 mg tablet,delayed release (DR/EC) 40 mg PO BID Patient Comments: TAKE 1 TABLET BY MOUTH TWICE A DAY gabapentin 600 mg tablet 600 mg PO TID Discontinued terbinafine HCl 250 mg tablet 250 mg PO QDAY Patient Comments: TAKE 1 TABLET BY MOUTH EVERY DAY FOR 90 DAYS penicillin V potassium 500 mg tablet 125 mg PO BID Patient Comments: 1 TABLET ORALLY EVERY 6 HOURS 14 DAYS hydralazine 25 mg tablet 25 mg PO BID Referrals: Alona Hawkins MD [Physician] - Tessy Sahni FNP [Primary Care Provider] - Patient/Caregiver Discharge Instructions Education Materials: Upper GI Endoscopy, Understanding Gastritis, Addiction Ask These Questions, Addiction: Getting Help Print Language: Hungarian Stand Alone Forms: Kimmy Award Info., Patient Portal Info Letter Discharge Order Discharge Orders: Discharge (Routine); Ordered 03/12/25 Ordered By: Jared Richter Quality Discharge Quality Measures VTE prophylaxis Attestestation MD Attestation I have discussed and was present for the essential components of the discharge history, physical examination, diagnosis, and discharge treatment plan with the resident. I agree with the patient's discharge care as documented by the resident and amended herein by me. Moose Her DO. The patient understood all discharge instructions, all questions were answered satisfactorily. The patient was instructed to return to the Emergency Department is symptoms worsened or persisted. Patient was stable, afebrile, tolerating p.o. intake and ambulatory at time of discharge. Patient discharged on propranolol 10 mg p.o. twice daily, instructed to follow-up with his hepatobiliary specialist next week Faith, all questions were answered satisfactorily. Although this document has been carefully reviewed, there may still be some phonetic and other typographical errors. These errors are purely grammatical due to imperfections in the software program and should not be construed in any way to compromise the substance of the patient's medical care during this visit.
[2025-03-12 18:29] VITALS: BP 116/81; PULSE 91; RESP 17; TEMP 36.8; O2SAT 100
== END 2025-03-12 18:38 | disposition home or self-care (01) | DRG 280 ==
LOC: SERX 03-07 05:11 → SERHOLD 03-07 05:36 → S3SX 03-07 06:19
PROVIDERS: Physician Assistant; Specialist; Student in an Organized Health Care Education/Training Program; Admitting Provider Student in an Organized Health Care Education/Training Program; Emergency Provider Emergency Medicine; PCP Registered Nurse Community Health; Visit Provider Student in an Organized Health Care Education/Training Program
PROC: 06L38CZ Occlusion of Esophageal Vein with Extraluminal Device, Via Natural or Artificial Opening Endoscopic (ICD-10-PCS; CPT 43239; principal; 2025-03-08 14:30)
DX: K70.31 Alcoholic cirrhosis of liver with ascites (principal); K85.90 Acute pancreatitis without necrosis or infection, unspecified; K21.9 Gastro-esophageal reflux disease without esophagitis; D68.9 Coagulation defect, unspecified; F10.129 Alcohol abuse with intoxication, unspecified; Y90.8 Blood alcohol level of 240 mg/100 ml or more; D62 Acute posthemorrhagic anemia; I85.11 Secondary esophageal varices with bleeding; K29.01 Acute gastritis with bleeding; K29.21 Alcoholic gastritis with bleeding; K76.6 Portal hypertension; Z78.9 Other specified health status; Z79.899 Other long term (current) drug therapy; K31.89 Other diseases of stomach and duodenum; D61.818 Other pancytopenia; K22.11 Ulcer of esophagus with bleeding; G40.509 Epileptic seizures related to external causes, not intractable, without status epilepticus; R00.0 Tachycardia, unspecified
CPT/HCPCS: 36415; 74177; 80048; 80053; 80061; 80320; 82607; 82746; 83690; 83735; 84100; 85014; 85018; 85025; 85046; 85610; 85730; 96361; 96374; 96375; 99285; A4649; J0696; J1200; J1815; J1953; J2250; J2270; J2354; J2405; J2470; J2765; J3010; J3475; J7030; J7042; J7050; Q9967; A9270; G0480

== ENCOUNTER 2025-04-05 21:03 | Emergency (ER) | payer OTHER, SELFPAY ==
[2025-04-05 21:40] VITALS: BP 123/79; PULSE 123; RESP 18; TEMP 36.9; O2SAT 97
--- NOTE | 2025-04-05 22:17 | XR_ITS ---
Examination: CT abdomen with intravenous contrast CT pelvis with intravenous contrast 2-D coronal reconstructions 2-D sagittal reconstructions Date and time of exam:April 06, 2025 1212 hours, comparison March 07, 2025 INDICATIONS: Epigastric pain vomiting beginning 9 days ago, diagnosis cirrhosis, diagnosis pancreatic cancer. CTDI: vol (mGy) 10.36 DLP: (mGycm) 464 Technique: Multiple axial sections of the abdomen and pelvis have been obtained. 64 slice high-resolution scanner used. 3 mm axial sections have been obtained, post intravenous injection 60 cc Isovue 370 2-D sagittal, coronal reconstructions obtained. Low dose protocols were performed. One or more of the following dose reduction techniques were used; automated exposure control, adjustment of the mA and/or KV according to patient size, use of iterative reconstruction technique. Findings: Liver is irregular in contour with fatty infiltration 12 mm low-density right lobe liver lesion Splenomegaly 16 cm Small retrocardiac gastric hernia Suspicious for minimal gallbladder wall thickening Trace ascites, edema around the pancreas No renal or ureteral calculi, no hydronephrosis Aorta normal size Normal appendix with appendicolith No bowel obstruction No prostatomegaly Urinary bladder intact Prominent osteopenia with moderate disc narrowing L5-S1. IMPRESSION: Cirrhosis Significant splenomegaly Recommend hepatobiliary sonography to exclude gallbladder wall thickening Edema around the pancreas, consider acute pancreatitis No bowel obstruction Normal appendix
--- NOTE | 2025-04-05 22:17 | EKG_ITS ---
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
--- NOTE | 2025-04-05 22:30 | PD.EDGIBLD ---
ED GI Bleed RME/HPI General Chief complaint: Abdominal Pain Stated complaint: ABD PAIN Time Seen by Provider: 04/05/25 21:34 Arrival date/time: 04/05/25 21:03 RME / HPI RME / HPI Narrative: DR. LEA MAIN ED EVALUATION: 39 y/o male with Hx of Seizures, Pancreatitis, Gastrointestinal Bleed, Liver CA and Cirrhosis presents to ED c/o upper abdominal pain, epistaxis, and bloody diarrhea s/p binge drinking x 6 days ago. Patient admits to relapsing and being on a 9-day binge with abdominal pain starting 3 days after binge began. Denies vomiting. Patient takes Keppra for seizure management. Related Data Home Medications ?Medication ?Instructions ?Recorded ?Confirmed ferrous sulfate 325 mg (65 mg 325 mg PO EVERYOTHERDAY 01/06/25 03/07/25 iron) tablet gabapentin 600 mg tablet 600 mg PO TID 03/07/25 03/07/25 levetiracetam 500 mg tablet 500 mg PO Q12H 03/07/25 03/07/25 pantoprazole 40 mg tablet,delayed 40 mg PO BID 03/07/25 03/07/25 release Previous Rx's ?Medication ?Instructions ?Recorded folic acid 1 mg tablet 1 mg PO BID 30 days #30 tabs 01/18/22 propranolol 10 mg tablet 10 mg PO BID #60 tabs 03/12/25 Allergies Allergy/AdvReac Type Severity Reaction Status Date / Time No Known Allergies Allergy Verified 04/05/25 21:04 Review of Systems Review of Systems Systems Reviewed: All systems reviewed, normal except as documented Past Medical History Past Medical History NEUROLOGIC: Positive Neurological Disorders and Seizures CARDIAC: Positive Hypertension GASTROINTESTINAL: Positive Gastrointestinal Disorders, Liver Cancer, Cirrhosis, Pancreatitis and Gastrointestinal Bleed MUSCULOSKELETAL: Positive Musculoskeletal Disorders and Fractures PSYCHO/SOCIAL: Positive Psychiatric Problems and Anxiety OTHER HISTORY: Positive Blood Transfusions and Chicken Pox Family History FAMILY HISTORY: Positive Family Cardiac Disorders, Family Cancer and Family Surgery Social History ALCOHOL: Current ALCOHOL FREQUENCY: 3 or More Drinks per Day ALCOHOL LAST INTAKE: Unknown ED Exam Narrative Physical exam: GENERAL APPEARANCE: alert and oriented x 4, well-developed, well-nourished, no acute distress VITALS: All vitals were reviewed and the pulse ox is 97% on room air, which is normal according to my interpretation. HEENT: Very mild facial edema, atraumatic; pupils equal, round, reactive to light; EOMI; mucous membranes pink, moist; oropharynx clear NECK: Supple LUNGS: CTABL; no wheezes, no rales, no rhonchi HEART: Regular rate, regular rhythm; normal S1, S2; no murmurs ABDOMEN: non distended; normal BS; soft, mild epigastric tenderness, no guarding, no rebound; no masses, no organomegaly, no hernia BACK: no CVA tenderness EXTREMITIES: atraumatic; no edema NEUROLOGIC: awake; alert and oriented x4; cranial nerves II-XII grossly intact; no focal sensory or motor deficits PSYCHIATRIC: appropriate mood and affect SKIN: warm, dry, normal color; no rashes Course Quality Measures none Orders Category Date Time Status CT Screening NOW Care 04/05/25 22:17 Active 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 NOW Care 04/05/25 22:17 Active EKG (ED ONLY) *Do not use* NOW Care 04/05/25 22:[address] abdomen pelvis w con Stat Exams 04/05/25 22:17 Taken EKG (ED Only) Stat Exams 04/05/25 22:17 Draft Alcohol, Blood Medical Stat Lab 04/05/25 22:32 Completed B-Type Natriuretic Peptide Stat Lab 04/05/25 22:32 Completed CBC Stat Lab 04/05/25 22:32 Completed Comprehensive Metabolic Panel Stat Lab 04/05/25 22:32 Completed Drug Screen,Urine Stat Lab 04/05/25 22:33 Completed Lipase Stat Lab 04/05/25 22:32 Completed Magnesium Stat Lab 04/05/25 22:32 Completed Partial Thromboplastin Time Stat Lab 04/05/25 22:32 Completed Prothrombin Time with INR Stat Lab 04/05/25 22:32 Completed Troponin I Stat Lab 04/05/25 22:32 Completed UA, C/S IF [Urinalysis, C/S if Indicated] Stat Lab 04/05/25 22:33 Completed Morphine Inj Med 04/05/25 22:18 Discontinued 5 mg IVP X1 ONE Ondansetron Inj [Zofran Inj] Med 04/05/25 22:18 Discontinued 4 mg IVP X1 ONE Pantoprazole Inj [Protonix Inj] Med 04/05/25 22:18 Discontinued 80 mg IVP X1 ONE Pantoprazole/Ns 80Mg IV Premix [Protonix/NS 80mg IV Med 04/05/25 22:19 Active Premix] 80 mg in 100 ml IV X1 levETIRAcetam INJ [Keppra Inj] Med 04/05/25 22:17 Discontinued 1,000 mg IVP X1 ONE Vital Signs Vital signs: Vital Signs Temperature 98.5 F 04/05/25 21:40 Pulse Rate 123 H 04/05/25 21:40 Respiratory Rate 18 04/05/25 21:40 Blood Pressure 123/79 04/05/25 21:40 Pulse Oximetry (%) 97 04/05/25 21:40 Oxygen Delivery Method Room Air 04/05/25 21:40 GI Bleed MDM Narrative MDM Narrative:: Scribe Attestation: I, Randa Westbrook, am scribing for and in the presence of Dr. Lea. Provider Notation: Although this document has been carefully reviewed, there may still be some phonetic and other typographical errors.? These errors are purely grammatical due to imperfections in the software program and should not be construed in any way to? compromise the substance of the patient's medical care during this visit. Patient data External records reviewed:: [facility] previous records (Reviewed prior ED records from 03/07/25. Patient was seen for Acute inflammation of the pancreas.) Clinical information provided by:: patient Social determinants that could affect healthcare access:: alcohol use Patient has the following chronic illnesses:: Seizures, Hypertension, Pancreatitis, Gastrointestinal Bleed, Fractures, Anxiety, Liver Cancer, Cirrhosis How is presenting disease/condition affected by chronic disease/condition?: exacerbated by Evaluation data The following diagnostics were reviewed and interpreted by me:: lab results, radiology exam(s) and EKG tracing(s) (EKG manual reading, my interpretation: sinus tachycardia, rate: 111 bpm, no ST elevation, no acute ischemic changes, interpreted as normal) Lab and/or radiology exams considered but not ordered:: None Interpretation Summary: RADIOLOGY Abdomen/Pelvis CT: Findings: There is left basilar atelectasis. Again seen are subcentimeter hypodensities in the liver, which are too small to characterize. No evidence of calcified gallstones. Again seen is mild prominence of the biliary ducts. No evidence of radiodense calculus in the common bile duct. Again seen is moderate splenomegaly. There is mild diffuse peripancreatic fat stranding, predominantly around the head and uncinate process, unchanged since the prior examination. No focal peripancreatic fluid collection. The adrenals are unremarkable. No evidence to suggest bowel obstruction. There is a 4 mm appendicolith. The appendix is otherwise normal in caliber without surrounding fat stranding (images [id number]) . The urinary bladder is unremarkable. There is no free fluid, free air or abscess.Again seen is mild diffuse calcification of the iliac and femoral arteries bilaterally. Mild degenerative changes are identified in the spine. Impression: Mild diffuse peripancreatic fat stranding, unchanged since the prior examination, the possibility of acute pancreatitis cannot be excluded. Recommend clinical and laboratory correlation. No evidence of bowel obstruction, free air or abscess. Other findings as described above. Medications / Prescriptions Medications or Prescriptions considered but not ordered:: None Medication administrations:: Medication Administration History Pantoprazole Sodium (Protonix/Ns 80mg Iv Premix) 80 mg in 100 mls @ 10 mls/hr IV X1 ONE Stop: 04/06/25 08:18 Last Admin: 04/05/25 23:22 Dose: 10 mls/hr Documented By: EE Discontinued Medications Levetiracetam (Levetiracetam Inj 100 Mg/Ml Vial 5ml) 1,000 mg IVP X1 ONE Stop: 04/05/25 22:18 Last Admin: 04/05/25 23:23 Dose: 1,000 mg Documented By: EE Morphine Sulfate (Morphine Sulf Inj 10 Mg/Ml Vial) 5 mg IVP X1 ONE Stop: 04/05/25 22:19 Last Admin: 04/05/25 23:23 Dose: 5 mg Documented By: EE Ondansetron HCl (Ondansetron Inj 2 Mg/Ml Inj 2 Ml) 4 mg IVP X1 ONE Stop: 04/05/25 22:19 Last Admin: 04/05/25 23:23 Dose: 4 mg Documented By: EE Pantoprazole Sodium (Pantoprazole Inj 40 Mg Vial) 80 mg IVP X1 ONE Stop: 04/05/25 22:19 Last Admin: 04/05/25 23:22 Dose: 80 mg Documented By: JENNIFER See above Consultations Consultation(s) initiated? (list below): No Diagnosis GI bleed differential diagnosis: hemorrhoids, infectious diarrhea, esophageal varices, gastritis, Daria-Santacruz syndrome, Upper gastrointestinal hemorrhage, Lower gastrointestinal hemorrhage, hematochezia, melena and anal fissure Most likely diagnosis given after review of the tests above:: Abdominal pain, Alcohol intoxication Admission Indicated Admission indicated?: not indicated Explain why admission is indicated or not indicated:: Patient does not meet admission [id number]. Admission Request Was there a request for admission?: No Disposition Plan Disposition Plan: Discharge Discharge Attestation Discharge Attestation: The patient and all family members were given an opportunity to ask questions and understood the discharge instructions. Discharge instructions specifically effects, indications for sooner follow up or return to the emergency department, and the expected course of current diagnosis. Patient condition: Stable Discharge Plan Plan Patient Disposition: HOME (Self Care) Prescriptions/Referrals Prescriptions/Med Rec: No Action folic acid 1 mg Tablet 1 mg PO BID 30 Days Qty: 30 0RF ferrous sulfate 325 mg (65 mg iron) tablet 325 mg PO EVERYOTHERDAY Patient Comments: 1 TABLET ORALLY THREE TIMES A WEEK 30 DAYS levetiracetam 500 mg tablet 500 mg PO Q12H Patient Comments: TAKE 1 TABLET BY MOUTH EVERY 12 HOURS FOR 90 DAYS pantoprazole 40 mg tablet,delayed release (DR/EC) 40 mg PO BID Patient Comments: TAKE 1 TABLET BY MOUTH TWICE A DAY gabapentin 600 mg tablet 600 mg PO TID propranolol 10 mg tablet 10 mg PO BID Qty: 60 1RF Rx Instructions: Take 1 tablet twice daily Referrals: [facility] MD [Primary Care Provider] - In 1 week Problem List Clinical Impression: Abdominal pain, Alcohol intoxication Patient/Caregiver Discharge Instructions Education Materials: Abdominal Pain, ED Alcohol Intoxication Print Language: Salvadorean Stand Alone Forms: Kimmy Award Info., Patient Portal Info Letter
[2025-04-05 22:44] LABS: Collection Type, Urine Clean Catch
[2025-04-05 22:52] LABS: Basophils # (Auto) 0.0 Thou/mm3 (0.0-0.2); Basophils % (Auto) 0 % (0-2.5); Eosinophils # (Auto) 0.0 Thou/mm3 (0.0-0.5); Eosinophils % (Auto) 0 % (0-10); Hematocrit 27.8 % (41.0-53.0); Hemoglobin 9.6 g/dL (13.5-16.0); Immature Granulocytes Auto 0.03 Thou/mm3 (0.00-0.00); Lymphocytes # (Auto) 2.1 Thou/mm3 (1.0-4.8); Lymphocytes % (Auto) 45 % (10-50); Mean Corpuscular HGB Conc 34.5 g/dl (31.0-37.0); Mean Corpuscular Hemoglobin 29.6 pg (25.0-35.0); Mean Corpuscular Volume 86 fL (80-100); Monocytes # (Auto) 0.3 Thou/mm3 (0.0-0.8); Monocytes % (Auto) 6 % (0-12); Neutrophils # (Auto) 2.2 Thou/mm3 (1.8-7.7); Neutrophils % (Auto) 48 % (37-80); Nucleated Red Blood Cell # 0.00 Thou/mm3 (0.00-0.00); Nucleated Red Blood Cell % 0 /100 WBC (0); Platelet Count 83 Thou/mm3 (140-440); RDW Standard Deviation 45.6 fL (35.1-43.9); Red Blood Count 3.24 Miln/mm3 (4.50-5.90); White Blood Count 4.6 Thou/mm3 (3.8-10.6)
[2025-04-05 22:55] LABS: Bilirubin,Urine Negative (Negative); Blood,Urine 2+ (Negative); Clarity,Urine Clear (Clear/Hazy); Color,Urine Yellow (Lt Yel-Yel); Culture Indicated,Urine Not Indicated; Glucose, Urine Negative (Negative); Ketones,Urine Negative (Negative); Leukocyte Esterase,Urine Negative (Negative); Nitrite,Urine Negative (Negative); PH,Urine 6.0 (5.0-7.0); Protein,Urine Negative (Neg - Trace); RBC,Urine 1 /hpf (0-3); Specific Gravity,Urine 1.009 (1.001-1.035); Squamous Epithelial Cell,Urine < 1 /hpf (0-5); Urobilinogen,Urine 2.0 mg/dL (0.0-1.0); WBC,Urine 1 /hpf (0-5)
[2025-04-05 23:02] LABS: INR 1.3 (0.9-1.3); Partial Thromboplastin Time 34.0 Seconds (22.0-36.0); Prothrombin Time 14.3 Seconds (9.0-12.2)
[2025-04-05 23:03] LABS: B-Type Natriuretic Peptide < 20 pg/mL (0-100)
[2025-04-05 23:16] VITALS: BP 122/83; PULSE 118; PULSE 120; RESP 18; TEMP 36.6; O2SAT 100; BMI 21.4
[2025-04-05 23:16] LABS: Alanine Aminotransferase 16 U/L (10-49); Albumin, Serum 3.6 gm/dL (3.5-5.0); Albumin/Globulin Ratio 0.7 (1.2-2.2); Alcohol, Blood Medical 385.7 mg/dL (0-10.0); Alkaline Phosphatase 196 U/L (46-116); Anion Gap 14 (7-16); Aspartate Amino Transferase 72 U/L (0-34); BUN/Creatinine Ratio 7 Ratio (12-20); Bilirubin,Total 1.2 mg/dL (0.3-1.2); Blood Urea Nitrogen < 5 mg/dL (9-23); Calcium 8.5 mg/dL (8.3-10.6); Calcium (Corrected) 8.8 mg/dL (8.5-10.1); Carbon Dioxide 25.0 mMol/L (20.0-31.0); Chloride 103 mMol/L (98-107); Creatinine (Component) 0.7 mg/dL (0.6-1.3); Globulin 5.1 gm/dL (2.3-3.5); Glucose 123 mg/dL (74-106); Lipase 20 U/L (12-53); Magnesium 1.6 mg/dL (1.6-2.6); Osmolality,Calculated 281 (275-295); Potassium 3.7 mMol/L (3.4-5.1); Sodium 142 mMol/L (136-145); Total Protein 8.7 gm/dL (5.7-8.2); Troponin I < 0.020 ng/mL (0.0-0.045); eGFR > 60 See Note
[2025-04-05] MEDS: PANTOPRAZOLE/NS 80MG IV PREMIX 80 MG/100 ML BAG 10 MG IV (23:22)
[2025-04-05] MEDS: MORPHINE SULF INJ 10 MG/ML VIAL 5 MG IVP (23:23)
[2025-04-05] MEDS: ONDANSETRON INJ 2 MG/ML INJ 2 ML 4 MG IVP (23:23)
[2025-04-05] MEDS: levETIRAcetam INJ 100 MG/ML VIAL 5ML 1000 MG IVP (23:23)
[2025-04-06 00:12] LABS: Amphetamine/Methamp Scrn,U Negative (Negative); Barbiturate Screen,Urine Negative (Negative); Benzodiazepines Screen,Urine Positive (Negative); Benzoylecgonine Screen, Ur Positive (Negative); Fentanyl Screen,Urine Negative (Negative); Opiate Screen,Urine Negative (Negative); THC Screen,Urine Negative (Negative)
--- NOTE | 2025-04-06 01:04 | PRELIM_ITS ---
CT scan of the abdomen and pelvis with intravenous contrast (axial sections with sagittal, coronal and 3D reformats) April 06, 2025 at 0012 hours Clinical History: Epigastric pain. Compared with the prior study dated March 07, 2025. Findings: There is left basilar atelectasis. Again seen are subcentimeter hypodensities in the liver, which are too small to characterize. No evidence of calcified gallstones. Again seen is mild prominence of the biliary ducts. No evidence of radiodense calculus in the common bile duct. Again seen is moderate splenomegaly. There is mild diffuse peripancreatic fat stranding, predominantly around the head and uncinate process, unchanged since the prior examination. No focal peripancreatic fluid collection. The adrenals are unremarkable. No evidence to suggest bowel obstruction. There is a 4 mm appendicolith. The appendix is otherwise normal in caliber without surrounding fat stranding (images [id number]) . The urinary bladder is unremarkable. There is no free fluid, free air or abscess.Again seen is mild diffuse calcification of the iliac and femoral arteries bilaterally. Mild degenerative changes are identified in the spine. Impression: Mild diffuse peripancreatic fat stranding, unchanged since the prior examination, the possibility of acute pancreatitis cannot be excluded. Recommend clinical and laboratory correlation. No evidence of bowel obstruction, free air or abscess. Other findings as described above. Report Electronically Signed By: Paul Arias 04/06/2025 1:03:20 AM [EST]
[2025-04-06 02:53] VITALS: BP 99/61; PULSE 94; RESP 14; TEMP 36.6; O2SAT 95
== END 2025-04-06 03:10 | disposition home or self-care (01) ==
PROVIDERS: Emergency Provider Emergency Medicine; PCP Internal Medicine
DX: F10.929 Alcohol use, unspecified with intoxication, unspecified (principal); K86.89 Other specified diseases of pancreas; K74.60 Unspecified cirrhosis of liver; R00.0 Tachycardia, unspecified; Y90.8 Blood alcohol level of 240 mg/100 ml or more; I10 Essential (primary) hypertension
CPT/HCPCS: 36415; 74177; 80053; 80307; 80320; 81001; 83690; 83735; 83880; 84484; 85025; 85610; 85730; 93005; 96374; 96375; 99284; A4649; J1953; J2270; J2405; J2470; J3490; Q9967; G0480